=== PATIENT | female | born 1980 | race Caucasian/White ===

== ENCOUNTER 2019-07-04 18:16 | Emergency (ER) | payer OTHER, SELFPAY ==
[2019-07-04 18:26] VITALS: BP 117/79; PULSE 87; RESP 16; TEMP 37.4; O2SAT 100
--- NOTE | 2019-07-04 18:38 | ED.GENADULT ---
HPI - General Adult General Chief complaint: Wound/Laceration Stated complaint: KNOT ON R FINGER Time Seen by Provider: 07/04/19 18:38 Source: patient Mode of arrival: ambulatory Limitations: no limitations History of Present Illness HPI narrative: 39-year-old female patient presents to the [facility] with complaints of a knot to the right index finger. Patient states she has noticed it for about the last 3 weeks however the last couple of days is gotten increasingly painful. Patient states that she was trying to open up a jar with that hand when the pain started. Patient states the pain only is painful when she puts pressure to the finger. Patient states she has been taking some Tylenol and ibuprofen for the pain. Related Data Home Medications Medication Instructions Recorded Confirmed Vitamin 07/04/19 calcium carbonate-vitamin D3 tablet PO 07/04/19 [Calcium 600 with Vitamin D3] Allergies Allergy/AdvReac Type Severity Reaction Status Date / Time tramadol AdvReac Mild Nausea and Unverified 01/07/19 15:48 Vomiting Review of Systems Review of Systems: Narrative: CONSTITUTIONAL: Denies fever, chills, or sweats. EYES: Denies visual changes, redness, or discharge. ENT: Denies rhinorrhea, congestion, sore throat, or otalgia. CARDIOVASCULAR: Denies chest pain, palpitations, or edema. RESPIRATORY: Denies cough or dyspnea. GASTROINTESTINAL: Denies abdominal pain, nausea, vomiting, or diarrhea. GENITOURINARY: Denies dysuria or hematuria. SKIN: Denies rash or itching. MUSCULOSKELETAL: Denies back pain, joint pain, or myalgia. Positive right index finger pain NEUROLOGIC: Denies headache, numbness, or weakness. PSYCHIATRIC: Denies anxiety or depression. PMFSH Comments At the time of my signature I agree with nursing past medical history, surgical, social, and family history. There is no relevant family history pertinent to the presenting complaint. Exam Narrative: Exam Narrative: GENERAL: Well-appearing, well-nourished, and in no acute distress. HEAD: Normocephalic, atraumatic. EYES: PERRLA and EOMI. ENT: Nares clear, no rhinorrhea or epistaxis. Mucous membranes moist. NECK: Supple. No lymphadenopathy CHEST: Clear to auscultation. No respiratory distress. HEART: Regular rate and rhythm. No murmur heard. Normal peripheral pulses. ABDOMEN: Soft, nontender, nondistended, normal active bowel sounds. EXTREMITIES: Normal range of motion. No edema. Patient has a small and mobile cyst underneath the skin noted between the PIP and MIP joint on the palm side of the right index finger. Slightly tender with palpation. There is no redness, warmth, swelling or no obvious open wounds at this time. Patient has excellent range of motion to the hand and fingers. No numbness or tingling. 2+ radial pulses noted on palpation. SKIN: Warm, dry, no rash. NEURO: No focal deficits. Alert and oriented x3. Course Vital Signs Vital signs: Vital Signs Temperature 37.4 C 07/04/19 18:26 Pulse Rate 87 07/04/19 18:26 Respiratory Rate 16 07/04/19 18:26 Blood Pressure 117/79 07/04/19 18:26 Pulse Oximetry 100 07/04/19 18:26 Temperature 37.4 C 07/04/19 18:26 Pulse Rate 87 07/04/19 18:26 Respiratory Rate 16 07/04/19 18:26 Blood Pressure 117/79 07/04/19 18:26 Pulse Oximetry 100 07/04/19 18:26 Vital signs reviewed. Medical Decision Making Differential Diagnosis Differential Diagnosis: Differential diagnosis: Abscess, cellulitis, hidradenitis, laceration, puncture wound. Discussed with patient that this does feel like maybe a small little cyst underneath the skin. Discussed with patient that there is no signs of infection at this time. Discussed with patient that if her symptoms get worse and do show signs of infection including redness, swelling, increase in pain then she would need to be reassessed. Discussed with patient that I would continue taking Tylenol ibuprofen for pain. May also want to
== END 2019-07-04 18:49 | disposition home or self-care (01) ==
PROVIDERS: Emergency Provider Nurse Practitioner Family; PCP Family Medicine
DX: M79.644 Pain in right finger(s) (principal)
CPT/HCPCS: 99212; G0463

== ENCOUNTER 2021-11-09 15:00 | Outpatient (CLI) | payer OTHER, SELFPAY ==
--- NOTE | ~2021-11-09 | MM_ITS ---
EXAMINATION: MM screening chcia BI w mary HISTORY: Screening TECHNIQUE: Craniocaudal and mediolateral oblique 3-D tomosynthesis images were obtained and synthetic 2-D images were generated. CAD analysis was submitted and interpreted. COMPARISON: No prior mammogram is available for comparison at this institution. BREAST PARENCHYMAL COMPOSITION: There are scattered areas of fibroglandular density. FINDINGS: There is no evidence of suspicious mass, calcification, or architectural distortion to sugg est malignancy in either breast. There has been no suspicious interval change. IMPRESSION: 1. No mammographic evidence of malignancy. 2. Recommend routine screening mammography in one year. BI-RADS Category 1: Negative Reviewed, dictated and finalized at location A.
== END 2021-11-09 15:01 | disposition home or self-care (01) ==
LOC: ANHIMG 15:01
PROVIDERS: PCP Family Medicine; Visit Provider Nurse Practitioner Obstetrics & Gynecology
DX: Z12.31 Encounter for screening mammogram for malignant neoplasm of breast (principal)
CPT/HCPCS: 77063; 77067

== ENCOUNTER 2022-10-21 19:23 | Emergency (ER) | payer OTHER, SELFPAY ==
--- NOTE | 2022-10-21 19:29 | ED.EXTPRO ---
HPI - Extremity Problem General Chief complaint: Extremity Problem,Nontraumatic Stated complaint: Pain in heel of right foot Time Seen by Provider: 10/21/22 19:38 Source: patient, RN notes reviewed and old records reviewed Mode of arrival: ambulatory Limitations: no limitations History of Present Illness HPI Narrative: 42-year-old female presents to the [facility] with pain to her right posterior arch/heel area that has been going on for 3 months. States when she gets up in the morning and walks bare feet around the house the pain gets worse. Is wearing sneakers makes the feet better. Onset (ago): month(s) (3) Related Data Home Medications Medication Instructions Recorded Confirmed Vitamin 07/04/19 calcium carbonate 600 mg-vitamin tablet PO 07/04/19 D3 10 mcg (400 unit) chewable tablet (Calcium 600 with Vitamin D3) Allergies Allergy/AdvReac Type Severity Reaction Status Date / Time tramadol AdvReac Mild Nausea and Unverified 01/07/19 15:48 Vomiting Review of Systems Review of Systems: All systems reviewed & are unremarkable except as noted in HPI and below Constitutional: Constitutional: Reports no additional constitutional complaints Eyes: Eyes: Reports no additional eye complaints ENT: Reports system reviewed and no additional complaints, except as documented Cardiovascular: Cardiovascular: Reports no additional cardiovascular complaints, Denies chest pain and Denies dyspnea Respiratory: Respiratory: Reports no additional respiratory complaints, Denies chest congestion, Denies cough and Denies dyspnea Gastrointestinal: Gastrointestinal: Reports no additional gastrointestinal complaints, Denies abdominal pain, Denies nausea and Denies vomiting Musculoskeletal: Musculoskeletal: Reports as per HPI Integumentary/Breasts: Skin/Breast: Reports system reviewed and no additional complaints, except as docu Neurologic: Reports system reviewed and no additional complaints, except as documented Psychiatric: Psychiatric: Reports no additional psychiatric complaints Allergic/Immunologic: Allergic/Immunologic: Reports no additional allergic/immunologic complaints PMFSH Comments At the time of my signature, I reviewed and agree with the nursing past medical, surgical, social, and family history. There is no relevant family history pertinent to the patient complaint. Exam Const: General: cooperative, healthy appearing, comfortable, no acute distress, well developed, alert and well nourished Nutritional Appearance: well nourished Orientation/consciousness: patient oriented x3 Limitations: no limitations HENMT: Head: normal to inspection Ears: hearing grossly normal bilaterally and external ears normal Face/Nose/Sinus: Normal external nose present, Normal nares present, Normal nasal mucous membranes and turbinates present and normal facial exam Face and sinus: normal facial exam Throat: posterior oropharynx normal and uvula midline Eyes: General: appearance normal, both eyes and all related structures Alignment and Position: alignment normal Periorbital: periorbital findings normal Pupils: Equal, round and reactive pupils present EOM: EOMs intact bilaterally Neck: Neck: normal visual inspection, full ROM, no lymphadenopathy and no meningeal signs Chest: Chest palpation & inspection: normal inspection of the chest Resp: Effort & Inspection: normal respiratory effort and able to speak in complete sentences Auscultation: clear to auscultation bilaterally, no crackles, no rales, no rhonchi and no wheezes Cardio: Rate: regular rate Rhythm: regular rhythm Back/Spine/Pelvis: Cervical Spine: cervical ROM normal Thoracic/Lumbar Spine: No thoracic spinal tenderness Skin: General skin exam: normal color and no rashes or lesions noted Lesions: no lesions Rashes: no rashes Wounds: no wounds Neuro: General: patient oriented x3, gait normal, tone normal, moves all extremities and no meningeal s
[2022-10-21 19:32] VITALS: BP 121/96; PULSE 86; RESP 16; TEMP 36.5; O2SAT 100
== END 2022-10-21 19:51 | disposition home or self-care (01) ==
PROVIDERS: Emergency Provider Nurse Practitioner; PCP Family Medicine
DX: M72.2 Plantar fascial fibromatosis (principal)
CPT/HCPCS: 99212; G0463

== ENCOUNTER 2023-04-05 10:08 | Outpatient (CLI) | payer OTHER, SELFPAY ==
--- NOTE | ~2023-04-05 | MM_ITS ---
EXAMINATION: MM screening chica BI w mary HISTORY: Screening TECHNIQUE: Craniocaudal and mediolateral oblique 3-D tomosynthesis images were obtained and synthetic 2-D images were generated. CAD analysis was submitted and interpreted. COMPARISON: 11/09/2021 BREAST PARENCHYMAL COMPOSITION: There are scattered areas of fibroglandular density. FINDINGS: There is no evidence of suspicious mass, calcification, or architectural distortion to sugg est malignancy in either breast. There has been no suspicious interval change. IMPRESSION: 1. No mammographic evidence of malignancy. 2. Recommend routine screening mammography in one year. BI-RADS Category 1: Negative Reviewed, dictated and finalized at location A. GER [facility]
== END 2023-04-05 10:09 | disposition home or self-care (01) ==
PROVIDERS: PCP Family Medicine; Visit Provider Nurse Practitioner Obstetrics & Gynecology
DX: Z12.31 Encounter for screening mammogram for malignant neoplasm of breast (principal)
CPT/HCPCS: 77063; 77067

== ENCOUNTER 2023-04-13 15:42 | Emergency (ER) | payer OTHER, SELFPAY ==
--- NOTE | 2023-04-13 15:51 | ED.EYEPROB ---
HPI - Eye Problem General Chief complaint: Eye Problems Stated complaint: EYE REDNESS Time Seen by Provider: 04/13/23 15:51 Source: patient Mode of arrival: ambulatory Limitations: no limitations History of Present Illness HPI Narrative: 42-year-old female presents with complaint of redness to bilateral eyes. Started to left eye 1st now spreading to right eye. Complaining itching. Reports that her son and father both had bacterial conjunctivitis over the last week. Live in the same house. No vision changes. Patient does not were contacts. All systems reviewed and negative except as noted above. Related Data Home Medications Medication Instructions Recorded Confirmed Vitamin 07/04/19 calcium carbonate 600 mg-vitamin tablet PO 07/04/19 D3 10 mcg (400 unit) chewable tablet (Calcium 600 with Vitamin D3) Allergies Allergy/AdvReac Type Severity Reaction Status Date / Time tramadol AdvReac Mild Nausea and Unverified 01/07/19 15:48 Vomiting Review of Systems Review of Systems: CONSTITUTIONAL: Denies fever, chills, or sweats. EYES: Denies visual changes reports bilateral eye redness, itching and discharge. ENT: Denies rhinorrhea, congestion, sore throat, or otalgia. CARDIOVASCULAR: Denies chest pain, palpitations, or edema. RESPIRATORY: Denies cough or dyspnea. GASTROINTESTINAL: Denies abdominal pain, nausea, vomiting, or diarrhea. GENITOURINARY: Denies dysuria or hematuria. SKIN: Denies rash or itching. MUSCULOSKELETAL: Denies back pain, joint pain, or myalgia. NEUROLOGIC: Denies headache, numbness, or weakness. PSYCHIATRIC: Denies anxiety or depression. All other systems reviewed are negative, except as documented in HPI. PMFSH Comments At time of signature, agree with nursing past medical, surgical, social and family history. There is no relevant family history pertinent to the presenting complaint. Exam Narrative: GENERAL: This is a well-nourished, well-developed patient, in no apparent distress. HEAD: normocephalic, atraumatic. EYES: PERRL. Sclera and conjunctiva erythematous bilateral. Yellow drainage noted to left eye. Vision is grossly intact. EARS: External ears normal NOSE: External nose normal NECK: Neck supple, non-tender without lymphadenopathy, masses or thyromegaly. CARDIOVASCULAR: Regular rate and rhythm without murmurs, gallops, or rubs. RESPIRATORY: Clear to auscultation. Breath sounds equal bilaterally. No wheezes, rales, or rhonchi. SKIN: warm, Dry, intact with no suspicious lesions or rash, good texture and turgor. NEURO: awake, alert, and oriented to person, place and time. There were no obvious focal neurologic abnormalities. EXTREMITIES: No joint tenderness, effusion, or edema noted. Course Course Level of Care: Express Care Visit Vital Signs Vital signs: Vital Signs Temperature 36.9 C 04/13/23 15:52 Pulse Rate 89 04/13/23 15:52 Respiratory Rate 16 04/13/23 15:52 Blood Pressure 115/83 04/13/23 15:52 Pulse Oximetry 100 04/13/23 15:52 Temperature 36.9 C 04/13/23 15:52 Pulse Rate 89 04/13/23 15:52 Respiratory Rate 16 04/13/23 15:52 Blood Pressure 115/83 04/13/23 15:52 Pulse Oximetry 100 04/13/23 15:52 Reviewed MDM - Eye Problem MDM Narrative Medical decision making narrative: Patient is aware of diagnosis, understands and agrees to treatment plan. Anticipatory guidance given. Patient agrees to follow-up as directed and is aware of reasons to seek care at the emergency department. Portions of this record may have been created with voice recognition software Differential Diagnosis Differential diagnosis: Likely conjunctivitis Discharge Plan Discharge Clinical Impression: Acute bacterial conjunctivitis of both eyes Patient Disposition: Home, Self-Care Condition: Stable Instructions: Antibiotic Form, Conjunctivitis (ED) Additional Instructions: Use antibiotic drops as prescribed.
[2023-04-13 15:52] VITALS: BP 115/83; PULSE 89; RESP 16; TEMP 36.9; O2SAT 100
== END 2023-04-13 16:03 | disposition home or self-care (01) ==
PROVIDERS: Emergency Provider Nurse Practitioner Family; PCP Nurse Practitioner Adult Health
DX: H10.33 Unspecified acute conjunctivitis, bilateral (principal)
CPT/HCPCS: 99213; G0463

== ENCOUNTER 2023-07-15 10:43 | Emergency (ER) | payer OTHER, SELFPAY ==
[2023-07-15 10:57] VITALS: BP 111/77; PULSE 72; RESP 16; TEMP 36.2; O2SAT 100
--- NOTE | 2023-07-15 11:03 | ED.URI ---
HPI - URI/Sore Throat General Chief Complaint: Upper Respiratory Infection Stated Complaint: Sinus Infection Symptoms Time Seen by Provider: 07/15/23 11:09 Source: patient and RN notes reviewed Mode of arrival: ambulatory Limitations: no limitations History of Present Illness HPI Narrative: 43-year-old female presents concern for 2 week history of sinus pain, head congestion, sinus headache. She reports chronic sinus congestion likely from allergies. She takes Claritin and has been taking multi symptom cold medicine. MD elicited complaint: nasal congestion and sinus pain Related Data Home Medications Medication Instructions Recorded Confirmed Vitamin 1 cap PO DAILY 07/04/19 07/15/23 calcium carbonate 600 mg-vitamin 1 tablet PO DAILY 07/04/19 07/15/23 D3 10 mcg (400 unit) chewable tablet (Calcium 600 with Vitamin D3) Allergies Allergy/AdvReac Type Severity Reaction Status Date / Time tramadol AdvReac Mild Nausea and Unverified 07/15/23 10:50 Vomiting Review of Systems Review of Systems: CONSTITUTIONAL: Denies malaise, chills, sweats, or fever. EYES: Denies visual changes, redness, or discharge. ENT: Reports rhinorrhea, congestion, sinus pain CARDIOVASCULAR: Denies chest pain, palpitations, or edema. RESPIRATORY: Denies cough. Denies dyspnea. GASTROINTESTINAL: Denies abdominal pain, nausea, vomiting, diarrhea SKIN: Denies rash or itching. MUSCULOSKELETAL: Denies myalgia. NEUROLOGIC: Denies headache. All systems reviewed & are unremarkable except as noted in HPI and below PMFSH Comments At time of signature, agree with nursing past medical, surgical, social and family history. There is no relevant family history pertinent to the presenting complaint Exam Narrative: GENERAL: Well-appearing, well-nourished, and in no acute distress. HEAD: Normocephalic EYES: PERRLA, conjunctivae clear ENT: Nares clear, turbinates edematous and erythematous. Mucous membranes moist. TM pearly bey with sharp light reflex bilaterally; no tragal tenderness. Oropharynx not erythematous without lesions. Tonsils not enlarged and without exudate, no drooling, no hoarseness, no trismus, uvula midline. NECK: Supple. No lymphadenopathy CHEST: Clear to auscultation, breath sounds equal. No wheezing, rhonchi, rales, or stridor. No respiratory distress, speaks in full sentences. HEART: Regular rate and rhythm. No murmur heard. SKIN: Warm, dry, no rash. NEURO: Alert and oriented x3. PSYCH: Normal mood and affect Course Course Emergency Course: Patient is aware of diagnosis, understands and agrees to treatment plan. Anticipatory guidance given. Patient agrees to follow-up as directed and is aware of reasons to seek care at the emergency department. Portions of this record may have been created with voice recognition software Level of Care: Express Care Visit Vital Signs Vital signs: Vital Signs Temperature 97.2 F L 07/15/23 10:57 Pulse Rate 72 07/15/23 10:57 Respiratory Rate 16 07/15/23 10:57 Blood Pressure 111/77 07/15/23 10:57 Pulse Oximetry 100 07/15/23 10:57 Temperature 97.2 F L 07/15/23 10:57 Pulse Rate 72 07/15/23 10:57 Respiratory Rate 16 07/15/23 10:57 Blood Pressure 111/77 07/15/23 10:57 Pulse Oximetry 100 07/15/23 10:57 Reviewed. MDM - URI/Sore Throat MDM Narrative Medical decision making narrative: Differential diagnosis considered: Curran virus, strep pharyngitis, allergic rhinitis, upper respiratory tract infection, sinusitis, rhinosinusitis, nasopharyngitis. viral pharyngitis, otitis media, otitis externa, pneumonia, bronchitis, viral cough syndrome, viral syndrome, and influenza. Exam findings show no acute concerns or changes; patient is non-toxic appearing and is in no distress. Patient is appropriate for outpatient treatment and follow-up. Lab Data Attestation: I reviewed the patient's lab results. Critical Care Time Critical Care Time Critic
[2023-07-15 11:07] VITALS: BP 111/77; PULSE 72; RESP 16; TEMP 36.2; O2SAT 100
== END 2023-07-15 11:26 | disposition home or self-care (01) ==
PROVIDERS: Emergency Provider Nurse Practitioner; PCP Nurse Practitioner Adult Health
DX: J01.90 Acute sinusitis, unspecified (principal)
CPT/HCPCS: 99213; G0463

== ENCOUNTER 2023-12-01 16:43 | Emergency (ER) | payer OTHER, SELFPAY ==
--- NOTE | ~2023-12-01 | XR_ITS ---
XR wrist LT min 3V Ordering provider: Sophie Rodriguez NP History: . fall, pain in wrist . Comparison: None. FINDINGS: BONES: Normal. JOINT SPACES: Well maintained. SOFT TISSUES: Normal. IMPRESSION: No acute osseous abnormality left wrist. Reviewed, dictated and finalized at location A.
[2023-12-01 17:26] VITALS: BP 128/82; PULSE 94; RESP 16; TEMP 36.4; O2SAT 99
--- NOTE | 2023-12-01 17:56 | ED.UPPEXIN ---
HPI - Extremity Injury (Upper) General Chief Complaint: Extremity Injury, Upper Stated Complaint: Injured Wrist Left Time Seen by Provider: 12/01/23 17:40 Source: patient, family, RN notes reviewed and old records reviewed Mode of arrival: ambulatory Limitations: no limitations History of Present Illness HPI narrative: 43-year-old female who presents to [facility] of injury to her left wrist which occurred when she fell roller-skating with her daughter. Patient reports that she tried to brace her fall and put her hands back and she injured the left wrist. Patient also reports that she twisted her back when she fell with no voiced acute concern at this time reports no pain to legs. MD complaint: injury to: left and wrist Onset (ago): hour(s) (today prior to arrival) Severity scale (1-10): 7 Treatments prior to arrival: other (none) Related Data Home Medications Medication Instructions Recorded Confirmed Vitamin 1 cap PO DAILY 07/04/19 12/01/23 calcium carbonate 600 mg-vitamin 1 tablet PO DAILY 07/04/19 12/01/23 D3 10 mcg (400 unit) chewable tablet (Calcium 600 with Vitamin D3) drospirenone (contraceptive) 4 mg 1 tablet PO DAILY 12/01/23 12/01/23 (28) tablet (Slynd) Allergies Allergy/AdvReac Type Severity Reaction Status Date / Time tramadol AdvReac Mild Nausea and Verified 12/01/23 17:24 Vomiting Review of Systems Review of Systems: CONSTITUTIONAL: Denies fever, chills, or sweats. EYES: Denies visual changes, redness, or discharge. ENT: Denies rhinorrhea, congestion, sore throat, or otalgia. CARDIOVASCULAR: Denies chest pain, palpitations, or edema. RESPIRATORY: Denies cough or dyspnea. GASTROINTESTINAL: Denies abdominal pain, nausea, vomiting, or diarrhea. GENITOURINARY: Denies dysuria or hematuria. SKIN: Denies rash or itching. MUSCULOSKELETAL: Denies acute back pain,pain to left anterior wrist , or myalgia. NEUROLOGIC: Denies headache, numbness, or weakness. PSYCHIATRIC: Denies anxiety or depression. All systems reviewed & are unremarkable except as noted in HPI and below PMFSH Past Medical History Medical History (Updated 12/02/23 @ 09:15 by Sophie Rodriguez NP) UTI (urinary tract infection) Surgical History Surgical History (Updated 12/02/23 @ 09:16 by Sophie Rodriguez NP) [place] teeth extracted Social History Social History (Updated 12/02/23 @ 09:16 by Sophie Rodriguez NP) Smoking status: Never smoker Alcohol intake: current Alcohol use details: social Substance use type: does not use Living arrangements: with family Gender identity (if verbalized by the patient): Female Comments At time of signature, agree with nursing past medical, surgical, social and family history. There is no relevant family history pertinent to the presenting complaint Exam Narrative: GENERAL: Well-appearing, well-nourished, and in no acute distress. HEAD: Normocephalic, atraumatic. EYES: PERRLA and EOMI. ENT: Nares clear, no rhinorrhea or epistaxis. Mucous membranes moist. NECK: Supple. no lymphadenopathy CHEST: Clear to auscultation. No respiratory distress.SAO2 99% on room air HEART: Regular rate and rhythm. No murmur heard. Normal peripheral pulses. ABDOMEN: Soft, nontender, nondistended, normal active bowel sounds. EXTREMITIES: Normal range of motion. No edema.Pain to left anterior wrist occurring after fall, strong left radial pulse, is able to move wrist but painful, denies any tingling or numbness to hand or fingers, brisk capillary refill SKIN: Warm, dry, no rash. NEURO: No focal deficits. Alert and oriented x3. Course Course Emergency Course: Patient is aware of diagnosis, understands and agrees to treatment plan.? Anticipatory guidance given.? Patient agrees to follow-up as directed and is aware of reasons to seek care at the emergency department. Portions of this record may have been created with voice recognition software Level of Care: [facility]
== END 2023-12-01 18:10 | disposition home or self-care (01) ==
PROVIDERS: Emergency Provider Registered Nurse; PCP Family Medicine
DX: S63.502A Unspecified sprain of left wrist, initial encounter (principal); S66.912A Strain of unspecified muscle, fascia and tendon at wrist and hand level, left hand, initial encounter; V00.121A Fall from non-in-line roller-skates, initial encounter; Y93.51 Activity, roller skating (inline) and skateboarding
CPT/HCPCS: 73110; 99213; G0463

== ENCOUNTER 2024-04-06 09:47 | Outpatient (CLI) | payer OTHER, SELFPAY ==
--- NOTE | ~2024-04-06 | MM_ITS ---
EXAMINATION: MM screening chica BI w mary HISTORY: Screening TECHNIQUE: Craniocaudal and mediolateral oblique 3-D tomosynthesis images were obtained and synthetic 2-D images were generated. CAD analysis was submitted and interpreted. COMPARISON: Comparison to multiple prior studies sequentially, with oldest reviewed study dated 11/09. BREAST PARENCHYMAL COMPOSITION: Not dense: There are scattered areas of fibroglandular density. FINDINGS: There are developing asymmetries in the upper outer quadrant of both breasts, middle-fur mixer operator ior depth. There are no suspicious calcifications. IMPRESSION: 1. Developing bilateral breast asymmetries. 2. Additional mammographic views and possible breast ultrasound are recommended. BI-RADS Category 0: Incomplete: Needs additional imaging evaluation. Reviewed, dictated and finalized at location B. TH SCREENER IMPRESSION: 1. Developing bilateral breast asymmetries. 2. Additional mammographic views and possible breast ultrasound are recommended . BI-RADS Category 0: Incomplete: Needs additional imaging evaluation.
== END 2024-04-06 09:48 | disposition home or self-care (01) ==
LOC: ANHIMG 09:51
PROVIDERS: PCP Family Medicine; Visit Provider Nurse Practitioner Obstetrics & Gynecology
DX: Z12.31 Encounter for screening mammogram for malignant neoplasm of breast (principal); R92.8 Other abnormal and inconclusive findings on diagnostic imaging of breast
CPT/HCPCS: 77063; 77067

== ENCOUNTER 2024-05-01 10:42 | Outpatient (CLI) | payer OTHER, SELFPAY ==
--- NOTE | ~2024-05-01 | MMUS_ITS ---
EXAMINATION: MM diagnostic chica BI w mary, US breast BI limited HISTORY: Follow-up breast asymmetries TECHNIQUE: Additional 3-D tomosynthesis images of the breasts were performed and synthetic 2-D images were generated. CAD analysis was submitted and interpreted. High resolution limited bilateral breast ultrasound was performed. COMPARISON: Comparison to multiple prior studies sequentially, with oldest reviewed study dated 11/09. BREAST PARENCHYMAL COMPOSITION: Not dense: There are scattered areas of fibroglandular density. FINDINGS: MAMMOGRAPHIC FINDINGS: Asymmetries in the lateral aspect of both breast compress with spot views, likely superimposed fibrog landular tissue. No discrete mass or architectural distortion. There are no suspicious calcifications . ULTRASOUND: Limited bilateral breast ultrasound: Normal heterogeneous echotexture without focal solid or cystic m ass. IMPRESSION: 1. No evidence for malignancy in either breast. 2. Routine yearly screening mammogram and regular clinical breast examination are recommended. BI-RADS Category 2: Benign finding(s). Reviewed, dictated and finalized at location B. GATION ASSISTANT IMPRESSION: 1. No evidence for malignancy in either breast. 2. Routine yearly screening mammogram and regular clinical breast examination a re recommended. BI-RADS Category 2: Benign finding(s).
--- OUTSIDE RECORDS SUMMARY | 2024-05-08 06:29 | XMS_ITS | Referral Summary ---
Author Organization [facility] [employer] Address [address] [place] [address] Care Team Providers Care Consolidation Accountant Name Role Phone Unavailable Primary Care Provider Unavailabl e Source Comments [facility],non-owned Affiliates and Associated Physician Practices is amultiple site organization consisting of ambulatory clinics and hospital sitesin [place], [place], [place] and [place]. This disclosure is being madepursuant to the Care Everywhere program and may not contain all information available regarding this patient. Last updated 18.[facility] [employer] Allergies No known active allergies Medications * Be aware that medications may not be up to date on this document. Alwaysverify current medications with the patient. Medication Sig Dispensed Refills Start Date End Date Status Slynd 4 MG TABS tablet Take 1 (one) tablet by mouth once daily 09/24/2022 Active Social History Tobacco Use Types Packs/Day Years Used Date Smoking Tobacco: Never Smokeless Tobacco: Never Tobacco Cessation:Counseling Given: Not Answered Alcohol Use Standard Drinks/Week Comments Yes 0 (1 standard drink = 0.6 oz pur e alcohol) 3 per month Sex and Gender Information Value Date Recorded Sex Assigned at Not on file Gender Identity Not on file Sexual Orientation Not on file Last Filed Vital Signs Vital Sign Reading Time Taken Comments Blood Pressure 122/88 10/28/2022 2:32 PM CDT Pulse 56 10/28/2022 2:32 PM CDT Temperature 35.7 ??C (96.3 ??F) 10/28/2022 2:32 PM CD T Respiratory Rate - - Oxygen Saturation 94% 10/28/2022 2:32 PM CDT Inhaled Oxygen Concentration - - Weight 76.2 kg (168 lb) 10/28/2022 2:32 PM CDT Height 165.1 cm (5' 5 ) 10/28/2022 2:32 PM CDT Body Mass Index 27.96 10/28/2022 2:32 PM CDT Plan of Treatment Not on file
--- OUTSIDE RECORDS SUMMARY | 2024-05-08 06:29 | XMS_ITS | Patient Health Summary ---
Author Organization [facility] Address [address] [place] [address] Care Team Providers Care C.O.D. Clerk Name Role Phone Unavailable Primary Care Provider Unavailabl e Note from [facility],non-owned Affiliates and Associated Physician Practices is amultiple site organization consisting of ambulatory clinics and hospital sitesin [place], [place], [place] and [place]. This disclosure is being madepursuant to the Care Everywhere program and may not contain all information available regarding this patient. Last updated 18.[facility] [employer] Allergies No known active allergies Medications * Be aware that medications may not be up to date on this document. Alwaysverify current medications with the patient. * Slynd 4 MG TABS tablet(Started 09/24/2022) Take 1 (one) tablet by mouth once daily Social History Tobacco Use Types Packs/Day Years [...] Mass Index 27.96 10/28/2022 2:32 PM CDT Procedures * SONOGRAM - COMPLETE(Performed 02/12/2014) Performed for Choroid plexus cyst of fetus on ultrasound Results * SONOGRAM - COMPLETE (02/12/2014 8:53 AM CDT) Anatomical Region Laterality Modality Other 02/12/2014 8:53 AM CDT Narrative 02/22/2014 4:09 PM CDT ?[facility] ? [facility] [place] ?PHONE: ??FAX: ? Pat. Name: ?GAVIOTA GUAJARDO. No: ?[id number] Study Date: ?? 02/12/2014 ??8:53am , Age: ? 1980, 33 LMP: ?08/28/2013 GA by LMP: ?24w0d GA by US: ? 23w5d GA Selected: ??24w0d (LMP) KASHIF: ?06/04/2014 Referring MD: ERIN SERRANO MD Tractor Trailer Truck Driver: ??Stacy Palacios RDMS CPT4: ? 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 GROWTH EVALUATION Measurement ??GA ? Range ? Srce %for GA Ratios ----- ---- ------- BPD ??5.7 cm 23w4d (65l1n-91g6u) Hadl BPD 39% FL/BPD 0.75 (0.71 - 0.87) HC ??21.9 cm 23w6d (70c7b-84c3z) Hadl HC ??47% FL/AC ??0.22 (0.20 - 0.24) AC ??19.2 cm 24w0d (05k5w-32t6i) Hadl AC ??49% HC/AC ??1.14 (1.02 - 1.21) FL ?? 4.3 cm 24w1d (44j4m-10f8f) Hadl FL ??53% CI ? 0.75 (0.70 - 0.86) HL ?? 3.8 cm 23w1d (35l1e-22i9d) J Luis HL ??37% GA for sonogram 23w5d ([id number]) ?? Weight Estimate: based on (HL,BPD,HC,AC,FL) Avg ? Weight: 650 gm (555-745) Hadlock ? : 1lbs, 6oz ? Normal: 671 gm (503-838) Hadlock ? Wt% ? 44% for 24w0d Heart Rate: 143 bpm CLINICAL SUMMARY Study Number: ??1 A kang fetus is identified in breech presentation. ??The measurements today are consistent with appropriate growth compared to previous examination. ??The KASHIF selected is based on her LMP and a prior ultrasound examination. ??The amniotic fluid volume is within normal limits. ??The placenta is anterior. ??No major malformations are seen. ??The patient was advised that ultrasound does not allow detection of all structural or chromosomal abnormalities. ?? We discussed choroid plexus cysts as soft markers of trisomy 18. Her risk of trisomy 18 on Sequential Screen was less than 1:10,000 and her adjusted risk in about 1:1000 accounting for today's ultrasound. She is not interested in further testing. IMPRESSION: ?? 1. Single, live, IUP 24w0d 2. Appropriate size and growth for the established KASHIF 3. Normal amniotic fluid volume 4. Previously seen choroid plexus cysts were not demonstrated on today's examination 5. No structural malformations nor sonographic markers of aneuploidy were seen on today's examination RECOMMEND: ?? Follow up ultrasound as clinically indicated Thank you for allowing us the opportunity to care for your patient. Clement Bee MD <Electronic Signature> ??02/12/2014 10:23am Erin Serrano MD [facility] ORDERABLES
--- OUTSIDE RECORDS SUMMARY | 2024-05-08 06:29 | XMS_ITS | Clinical Summary ---
Author Organization [facility] [employer] Address [address] [place] [address] Care Team Providers Care Key Bed Installer Name Role Phone Unavailable Primary Care Provider Unavailabl e Source Comments [facility],non-owned Affiliates and Associated Physician Practices is amultiple site organization consisting of ambulatory clinics and hospital sitesin [place], [place], [place] and [place]. This disclosure is being madepursuant to the Care Everywhere program and may not contain all information available regarding this patient. Last updated 18.[facility] [employer] Allergies No known active allergies Medications * [...] 10/28/2022 2:32 PM CDT Plan of Treatment Health Maintenance Due Date Last Done Comments LIPID TESTING 1980 MAMMOGRAM 1980 HIV SCREENING 1996 HEPATITIS C SCREENING 06/08/1999 DTAP/TDAP/TD VACCINES (1 - Tdap) 2000 HEPATITIS B VACCINE (1 of 3 - 19+ 3-dose series) 2000 SCREENING FOR DIABETES 10/28/2022 COVID-19 VACCINE (1 - 2023-2 5 season) 2023 INFLUENZA VACCINE (#1) 2023 DEPRESSION SCREENING 04/25/2024 PAP SMEAR 09/09/2024 09/09/2021 ZOSTER VACCINE (1 of 2) 2031 HIB VACCINE Aged Out No longer eligi ble based on patient's age to complete this topic HPV VACCINE Aged Out No longer eligi ble based on patient's age to complete this topic MENINGOCOCCAL (Group B) VACCINE Aged Out No longer eligible based on patient's age to complete this topic MENINGOCOCCAL VACCINE Aged Out No franck kimmie eligible based on patient's age to complete this topic PNEUMOCOCCAL VACCINE Aged Out No long er eligible based on patient's age to complete this topic
--- OUTSIDE RECORDS SUMMARY | 2024-05-08 06:30 | XMS_ITS | Data Portability ---
Author Organization [facility] [place] Address [address] [address] [place] [address] Care Team Providers Care Batteryman Name Role Phone FRANTZNIMESH LISALUKASZESTUARDO Primary Care Provider Assessment Encounter Date Assessment Date Assessment LastModified by Organization Details LastModified Time 05/06/2020 05/06/2020 Annual gynecological exam performed. Patient will come back in a year unless there are new symptoms. Not available 05/06/2020 14:37:55 09/09/2021 09/09/2021 Annual gynecological exam performed. Patient will come back in a year unless there are new symptoms. Not available 09/09/2021 11:52:52 12/15/2022 12/15/2022 Annual gynecological exam performed. Patient will come back in a year unless there are new symptoms. [email or web address] Not available 12/15/2022 11:29:49 Plan of Treatment Reminders Order Date Submit Date Provider Last Modified By Organization Details Last Modified Time Details Appointments None recorded. Lab test, urine 2022 023 [email or web address] [facility], [address], [place], [address], 11:59:07 Referral None recorded. Procedures None recorded. Surgeries None recorded. Imaging MAMMO, screening, bilateral 2022 023 [email or web address] [facility], [address], [place], [address], 08/30/202 3 12:19:23 Medication Orders Slynd 4 mg (28) tablet 2020 021 [facility] [address] [place], [address], 1 16:35:12 Slynd 4 mg (28) tablet 2021 022 [facility] [address] [place], [address], 2 12:09:40 Slynd 4 mg (28) tablet 2022 023 [facility] [address] [place], [address], 3 12:01:31 Slynd 4 mg (28) tablet 2023 024 [email or web address] 6 [facility] [address] [place], [address], 4 11:11:37 Patient TargetsNo targets recorded. Patient InstructionsNo instructions recorded. Reason for Referral None Reported. Results Created Date Observation Date Name Description Value Unit Range Abnormal Flag Note LastModifiedBy Organization Detail LastModifiedTime 05/06/19 21 05/08/2020 pap, LB Pap test thin prep Negati ve for Intrae pithel ial Lesion or Malign elvis normal ACCES MIKE #: [id number] Sourc e: Cervi hunter/E ndoce rvica l LMP: 09/11 Date Taken : 05/06 Speci men Type: ThinP rep Vial Date Repor carlos enrique: 2020 Clini hunter Data: Cytot ech: SLOAN Pradhan (ASCP ) Date Repor carlos enrique: 2020 Speci men Adequ acy: Satis facto ry for evalu ation Endoc ervic al/tr ansfo rmati on zone compo nent prese nt Gener al Categ oriza tion: NEGAT SHAR FOR INTRA EPITH ELIAL LESIO N OR MALIG SYED This speci men has been efrain zed by the ThinP rep Imagi ng Dariusz m, an inter activ e compu ter syste m which teddy ts the lab in the seth joyce of ThinP rep Pap Test slide jayesh olea imagi ng, the slide was revie wed by a Cytot izabellano logis t and/o r Patho logis t. D N A A S S A Y S R E P O R T TEST NAME RESUL NILS ----- ---- ----- -- HPV High Risk Seth gutierrez (TMA) ThinP rep Vial The human papil lomav irus (HPV) High Risk Screed n is an FDA-a pprov ed in-vi tro ampli fied nucle ic acid test for the quali tativ e detec tion of E6/E7 viral mRNA. Resul nils choi d be corre lated with patie nt prese ntati on, histo ry, cervi hunter cytol ogy and other clini hunter and labor atory findi ngs. See https ://[employer]/s ites/ defau lt/fi les/2 018-0 3AW- 57135 _002_ 01.pd f for anna marie gutierrez. Test perfo rmed by [facility] d/b/a [facility], [address] [facility], [place] [address] , Jo Vidales ra, DO, Labor atory [facility]. HPV High Risk *HPV NOT DETEC CARLOS ENRIQUE (TYPE S 16, 18, 31, 33, 35, 39, 45, 51, 52, 56, 58, 59, 66, 68) *HPV: The human papil lomav irus (HPV) High Risk Seth gutierrez is an FDA-a pprov ed in-vi tro ampli fied nucle ic acid test for the quali tativ e detec tion of E6/E7 viral mRNA. Resul nils choi d be corre lated with patie nt prese ntati on, histo ry, cervi hunter cytol ogy and other clini hunter and labor atory findi ngs. See https ://[employer]/s ites/ defau lt/fi les/2 018-0 3- 43207 _002_ 01.pd f for furth er infor elias n. Test perfo rmed by [facility], d/b/a [email or web address], [address], [place] [address] , Jo Vidales ra, DO, Labor atory [facility]. End of Repor t Techn ical servi cyrus provi ded by [email or web address], [address] [place] [address] Ranjit Morales MD, [facility]. Case revie wed and diagn osis rende red at [facility], d/b/a [email or web address], [address] [place] [address] Ranjit Morales MD, [facility]. CONFI DENTI AL Not Available [facility] ([facility]) [address] [place] [address], [place], [address], 05/08/2020 12:14:47 05/06/19 21 05/07/2020 HPV DNA, high- risk HPV high risk NOT DETECT ED normal Not Available [facility] ([facility]) [address] [place] [address], [place], [address], 05/08/2020 12:14:48 09/10/19 22 09/09/2021 IMAGE GUIDE D PAP AND HPV REGAR DLESS image guided Pap, HPV regardless of Pap result SEE RESULT S BELOW CASE REPOR T: Cytol ogy Gynec ologi hunter Repor t Case: [id number] Autho brooke haney Provi heather: Josh Hall Colle cted: 09/09 1448 ENGINEER STATION MAINLINE Order ing Locat ion: [place] [facility] Recei ashley: 09/10 0222 First Scree n: Larisa Villaseñor ret, CT Rescr een: Juliana Ortega , CT Speci men: Scree isiah Pap - Image d, Cervi x STATE MENT OF ADEQU ACY: Satis facto ry for evalu ation Trans forma tion zone compo nent prese nt FINAL DIAGN OSIS: Negat shar for Intra epith elial Lesio n or Onesimo oneill (NIL) . Elect julio cesar morales ezio d by Juliana Ortega , CT on 2021 at 6:50 PM ----- ----- ----- ----- ----- ----- ----- ----- ----- ----- ----- ----- ----- ----- ----- ----- ----- ---- HPV RESUL TS: HPV mRNA E6/E7 : No HPV mRNA Detec carlos enrique NOTE: This high risk HPV mRNA assay detec ts fourt een high- risk HPV types (16, 18, 31, 33, 35, 39, 45, 51, 52, 56, 58, 59, 66, 68) witho ut diffe renti ation . COMME NT: Note: This speci men was revie wed by a Cytot echno logis t and/o r Patho logis t (as indic ated in this repor t) after evalu ation using the Thinp rep Imagi ng Syste m. CLINI HUNTER INFOR MATIO N: Menst rual Statu s: LMP (if appli cable ): Clini hunter Histo ry/Pr eviou s Pap: Type of Neopl roxanne (if appli cable ): Signi fican t Clini hunter Findi ngs: Other Histo ry: Hormo deedee (if appli cable ): PAP EDUCA YAIR L NOTE: The Pap Test is a scree isiah test with an inher ent false negat shar rate. Liqui d-bas ed sampl ing may decre ase, but will not elimi jericho, false negat shar resul ts. A negat shar resul t does not precl ude the prese nce and/o r devel opmen t of disea se, since the prese nce of abnor mal cells in the sampl e depen ds on the locat ion of the lesio n and sampl ing techn ique. Prudence nued regul ar scree isiah is the best metho d of cance r preve ntion . If repor carlos enrique cytol ogic findi ng do not corre late with physi hunter and/o r histo rical findi ngs, furth er inves tigat ion is recom bria d, as clini matthew díaz nted. Not Available [facility] (Lab) [address], [place], [address], 09/15/2021 19:52:48 12/16/1912/15/2022 IMAGE GUIDE D PAP AND HPV REGAR DLESS image guided Pap, HPV regardless of Pap result SEE RESULT S BELOW CASE REPOR T: Cytol ogy Gynec ologi hunter Repor t Case: [id number] Autho brooke medina Provi heather: Josh Hall Colle cted: 12/15 1500 ENGINEER STATION MAINLINE Order ing Locat ion: [place] [facility] Recei ashley: 12/16 0705 First Scree n: Melody Lino, CT Speci men: Screed joyce Pap - Image d, Cervi x STATE MENT OF ADEQU ACY: Satis facto ry for evalu ation Trans forma tion zone compo nent prese nt FINAL DIAGN OSIS: Negat shar for Intra epith elial Lesio n or Onesimo oneill (NIL) . Ileana morales ezio d by Melody Lino, CT on 2022 at 3:16 PM ----- ----- ----- ----- ----- ----- ----- ----- ----- ----- ----- ----- ----- ----- ----- ----- ----- ---- HPV RESUL TS: HPV mRNA E6/E7 : No HPV mRNA Detec carlos enrique NOTE: This high risk HPV mRNA assay detec ts fourt een high- risk HPV types (16, 18, 31, 33, 35, 39, 45, 51, 52, 56, 58, 59, 66, 68) witho ut diffe renti ation . COMME NT: This speci men was revie wed by a Cytot echno logis t and/o r Patho logis t (as indic ated in this repor t) after evalu ation using the Thinp rep Imagi ng Syste m. CLINI HUNTER INFOR MATIO N: Menst rual Statu s: LMP (if appli cable ): Clini hunter Histo ry/Pr eviou s Pap: Type of Neopl roxanne (if appli cable ): Signi fican t Clini hunter Findi ngs: Other Histo ry: Hormo deedee (if appli cable ): PAP EDUCA YAIR L NOTE: The Pap Test is a scree isiah test with an inher ent false negat shar rate. Liqui d-bas ed sampl ing may decre ase, but will not elimi jericho, false negat shar resul ts. A negat shar resul t does not precl ude the prese nce and/o r devel opmen t of disea se, since the prese nce of abnor mal cells in the sampl e depen ds on the locat ion of the lesio n and sampl ing techn ique. Prudence nued regul ar scree isiah is the best metho d of cance r preve ntion . If repor carlos enrique cytol ogic findi ng do not corre late with physi hunter and/o r histo rical findi ngs, furth er inves tigat ion is recom bria d, as clini matthew díaz nted. Not Available [facility] (Lab) [address], [place], [address], 12/16/2022 16:21:11 12/16/19 23 12/15/2022 pregn elvis test, urine HCG negati ve Not Available [facility] [address], [place], [address], 12/15/2022 11:58:55 12/19/19 24 12/19/2023 IMAGE GUIDE D PAP AND HPV REGAR DLESS image guided Pap, HPV regardless of Pap result SEE RESULT S BELOW CASE REPOR T: Cytol ogy Gynec ologi hunter Repor t Case: [id number] Autho brooke haney Provi heather: Favio Alcantara MD Colle cted: 12/18 1106 Order ing Locat ion: [place] [facility] Recepeterson ashley: 12/19 0814 First Sharoned n: Maria De Jesus Subramanian een: Mauricio Amaya Speci men: Seth ojyce Pap - Image d, Cervi x STATE MENT OF ADEQU ACY: Satis facto ry for evalu ation Trans forma tion zone compo nent prese nt ----- ----- ----- ----- ----- ----- ----- ----- ----- ----- ----- ----- ----- ----- ----- ----- ----- ---- FINAL DIAGN OSIS: Negat shar for Intra epith elial Seth gutierrez or Onesimo oneill (NIL) . Elect julio cesar segal by Mauricio Amaya on 024 at 8:44 AM ----- ----- ----- ----- ----- ----- ----- ----- ----- ----- ----- ----- ----- ----- ----- ----- ----- ---- HPV RESUL TS: HPV mRNA E6/E7 : No HPV mRNA Detec carlos enrique NOTE: This high risk HPV mRNA assay detec ts fourt een high- risk HPV types (16, 18, 31, 33, 35, 39, 45, 51, 52, 56, 58, 59, 66, 68) witho ut diffe renti ation . COMME NT: This speci men was revie wed by a Cytot echno logis t and/o r Patho logis t (as indic ated in this repor t) after evalu ation using the Thinp rep Imagi ng Syste m. CLINI HUNTER INFOR MATIO N: Menst rual Statu s: LMP (if appli cable ): Clini hunter Histo ry/Pr eviou s Pap: Type of Neopl roxanne (if appli cable ): Signi fican t Clini hunter Findi ngs: Other Histo ry: Hormo deedee (if appli cable ): PAP EDUCA YAIR L NOTE: The Pap Test is a scree isiah test with an inher ent false negat shar rate. Liqui d-bas ed sampl ing may decre ase, but will not elimi jericho, false negat shar resul ts. A negat shar resul t does not precl ude the prese nce and/o r devel opmen t of disea se, since the prese nce of abnor mal cells in the sampl e depen ds on the locat ion of the lesio n and sampl ing techn ique. Prudence nued regul ar scree isiah is the best metho d of cance r preve ntion . If repor carlos enrique cytol ogic findi ng do not corre late with physi hunter and/o r histo rical findi ngs, furth er inves tigat ion is recom bria d, as clini matthew díaz nted. Not Available [facility] (Lab) [address], [place], [address], 12/26/2023 09:49:06 11/25/19 22 MAMMO , scree isiah, bilat eral No observ ation record ed. [email or web address] [facility] [address], [place], [address], 11/01/2022 16:10:36 04/06/20 24 04/06/2024 MAMMO , scree isiah, bilat eral No observ ation record ed. [email or web address] [facility] [address], [place], [address], 05/01/2024 15:03:26 05/02/19 25 05/01/2024 imagi ng/di agnos tic resul t No observ ation record ed. [facility] [address], [place], [address], 05/03/2024 17:49:08 Result Notes None recorded. Problems Name Problem SNOMED Code Status Onset Date Resolution Date Notes Provider Name and Address Organization Details Recorded Time SNOMED CT Concept Completed 201807/17/2020 Encntr for human resources professional exam (general ) (routine ) w/o abn findings ;Practic e ID: 0001 Corrine mullins [facility] 17:34:01 Routine antenata l care Completed 201307/17/2020 Supervis ion of other normal pregnanc y;Practi ce ID: 0001 Corrine mullins [facility] 17:33:46 Labor and delivery complica carlos enrique by heart rate anomaly [id number] Completed 201307/17/2020 HEART RATE NON REASSURI NG;Pract ice ID: 0001 Corrine mullins [facility] 17:33:30 Delivery normal [id number] Completed 201407/17/2020 Normal delivery ;Practic e ID: 0001 Corrine mullins [facility] 17:33:17 Single live [id number] Completed 201407/17/2020 Mother with single liveborn ;Practic e ID: 0001 Corrine mullins [facility] 17:33:59 Postpart um care Completed 201407/17/2020 Postpart um follow-u p;Practi ce ID: 0001 Corrine mullins [facility] 17:33:39 Adult health examinat ion Completed 201407/17/2020 Routine general medical examinat ion at a health care facility ;Practic e ID: 0001 Corrine Dwaine mullins, [facility] 17:33:07 Speciali zed medical examinat ion Completed 201407/17/2020 Routine gynecolo gical examinat ion;Prac juani ID: 0001 [facility] 17:34:03 Low grade squamous intraepi thelial lesion on cervical Papanico laou smear [id number] 105 Completed 201607/17/2020 Low grade intrepit h lesion cyto smr crvx (LGSIL); Practice ID: 0001 [facility] 17:33:36 Surveill ance of contrace ption Completed 201607/17/2020 Encounte r for surveill ance of contrace ptives, unspecif ied;Prac juani ID: 0001 [facility] 17:34:04 Pregnanc y test negative 573112615 Completed 201607/17/2020 Encounte r for pregnanc y test, result negative ;Practic e ID: 0001 [facility] 17:33:42 Uterine size for dates discrepa ncy Completed 201607/17/2020 Uterine size-herb e discrepa ncy, first trimeste r;Practi ce ID: 0001 Corrine mullins, [facility] 17:34:10 Gestatio n period, 10 weeks [id number] Completed 201607/17/2020 10 weeks gestatio n of pregnanc y;Practi ce ID: 0001 Corrine mullins [facility] 17:33:20 Secondar y amenorrh ea 808268803 Completed 201607/17/2020 Secondar y amenorrh ea;Pract ice ID: 0001 Corrine mullins, [facility] 17:33:55 Pregnanc y detectio n examinat ion Completed 201607/17/2020 Encounte r for pregnanc y test, result positive ;Practic e ID: 0001 Corrine mullins, [facility] 17:33:41 Normal pregnanc y in multigra randi [id number] 4106 Completed 201607/17/2020 Encounte r for suprvsn of normal pregnanc y, second trimeste r;Practi ce ID: 0001 Corrine mullins, [facility] 17:33:38 Uterine size for dates discrepa ncy Completed 201607/17/2020 Uterine size-herb e discrepa ncy, third trimeste r;Practi ce ID: 0001 Corrine mullins, [facility] 17:34:11 Gestatio n period, 36 weeks [id number] Completed 201607/17/2020 36 weeks gestatio n of pregnanc y;Practi ce ID: 0001 Corrine mullins, [facility] 17:33:21 heart finding Completed 201607/17/2020 Abnlt in heart rate and rhythm comp labor and delivery ;Practic e ID: 0001 Corrine mullins, [facility] 17:33:19 Gestatio n period, 38 weeks 70545183 Completed 201607/17/2020 38 weeks gestatio n of pregnanc y;Practi ce ID: 0001 Corrine mullins, [facility] 17:33:23 Lacerati on of female perineum Completed 201607/17/2020 First degree perineal lacerati on during delivery ;Practic e ID: 0001 Corrine mullins, [facility] 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 17:33:27 Gestatio n period, 39 weeks 53472071 Completed 201607/17/2020 39 weeks gestatio n of pregnanc y;Practi ce ID: 0001 Corrine mullins, [facility] 17:33:26 Lochia finding Completed 201607/17/2020 Encounte r for routine postpart um follow-u p;Practi ce ID: 0001 Corrine Isidro [facility], [facility] 17:33:34 Screenin g for malignan t neoplasm of cervix Completed 201707/17/2020 Encounte r for screenin g for malignan t neoplasm of cervix;P ractice ID: 0001 Corrine mullins, [facility] 17:33:57 Leukocyt osis 901936775 Completed 201307/17/2020 LEUKOCYT OSIS NOS;Beni rded Elsewher e: No Locat ion: [facility] S ource: EHR Staff Development Manager екатерина: N Practi ce ID: 0001 Bharathi lable Time: 09:30:00 AM [facility] 17:33:33 Pregnanc y test positive 133723534 Completed 201307/17/2020 Pregnanc y examinat ion or test, positive result;R ecorded Elsewher e: No Locat ion: [facility] S ource: EHR Staff Development Manager екатерина: N Practi ce ID: 0001 Bharathi lable Time: 09:59:00 AM Corrine mullins [facility] 17:33:44 Vaginiti s and vulvovag initis Completed 201307/17/2020 Vaginiti s;Record ed Elsewher e: No Locat ion: [facility] S ource: EHR Staff Development Manager екатерина: N Kendallti ce ID: 0001 Bharathi lable Time: 09:00:00 AM Corrine Isidro [facility] 17:34:13 Ultrason ography Completed 201307/17/2020 Antenata l screenin g for malforma tion using ultrason ics;Beni rded Elsewher e: No Locat ion: [facility] S ource: EHR Staff Development Manager екатерина: N Kendallti ce ID: 0001 Bharathi lable Time: 09:15:00 AM [facility] 17:34:07 Antenata l screenin g Completed 201307/17/2020 Antenata l screenin g for malforma tion using ultrason ics;Beni rded Elsewher e: No Locat ion: [facility] S ource: EHR Staff Development Manager екатерина: N Kendallti ce ID: 0001 Bharathi lable Time: 09:15:00 AM Corrine mullins [facility] 17:33:10 Congenit al malforma tion [id number] Completed 201307/17/2020 Antenata l screenin g for malforma tion using ultrason ics;Beni rded Elsewher e: No Locat ion: [facility] S ource: EHR Staff Development Manager екатерина: N Kendallti ce ID: 0001 Bharathi lable Time: 09:15:00 AM Corrine [facility] 17:33:14 Urinary tract infectio us disease 11401060 Completed 201007/17/2020 Urinary tract infectio n, site not specifie d;Practi ce ID: 0001 Corrine mullins, [facility] 17:34:08 Microsco pic hematuri a 507855810 Completed 201007/17/2020 HEMATURI A MICROSCO PIC;Prac juani ID: 0001 Corrine mullins, [facility] 17:33:37 Cytologi c finding [id number] Completed 201007/17/2020 Pap Abnormal LGSIL;Pr actice ID: 0001 Corrine mullins, [facility] 17:33:16 Breast lump [id number] Completed 201307/17/2020 Lump or mass in breast;P ractice ID: 0001 Corrine mullins, [facility] 17:33:13 Amenorrh ea 12142362 Completed 201307/17/2020 AMENORRH EA;Pract ice ID: 0001 Corrine Isidro [facility], [facility] 17:33:09 Swelling of limb 38890924 Completed 201307/17/2020 Swelling of limb;Pra ctice ID: 0001 [facility] 17:34:05 Primigra randi 280111911 Completed 201307/17/2020 Supervis ion of normal first pregnanc y;Practi ce ID: 0001 [facility] 17:33:[address] Concept Completed 201507/17/2020 Encntr for general adult medical exam w/o abnormal findings ;Recorde d Elsewher e: No Locat ion: Parrish ruiz [facility] S ource: EHR Staff Development Manager екатерина: N Practi ce ID: 0001 Bharathi lable Time: 04:30:00 PM Corrine mullins [facility] 17:34:00 Inflamma tory disorder of breast 714857001 Completed 201807/17/2020 Mastitis ;Recorde d Elsewher e: No Locat ion: [facility] S ource: EHR Staff Development Manager екатерина: N Practi ce ID: 0001 Bharathi lable Time: 11:00:00 AM Corrine mullins, [facility] 17:33:29 Body mass index 25-29 - overweig ht 682889151 Completed 201707/17/2020 Body mass index (BMI) 28.0-28. 9, adult;Re corded Elsewher e: No Locat ion: [facility] S ource: EHR Staff Development Manager екатерина: N Kendallti ce ID: 0001 Bharathi lable Time: 11:00:00 AM Corrine mullins, [facility] 17:33:12 Problem Notes None recorded. Procedures Surgical History Date Name Laterality Status Provider Name and Address Organization Details Recorded Time 2 Date of Last Pap Smear completed Yris Chavez [facility] 12/15/2022 11:43:15 4 Date of Last Mammogram completed Ame Desouza [facility] 09/09/2021 11:54:40 1 extraction of wisdom tooth completed Stephanie Roberson [facility] 05/06/2020 13:07:29 Imaging Results Imaging Date Name Status LastModified by Organiz ation Details LastModified Time 11/24/2021 MAMMO, screening, bilateral completed [address] [facility] [address], [place], [address], 11/01/2022 16:10:36 04/06/2024 MAMMO, screening, bilateral completed [address] [place] [address] [address], [place], [address], 05/01/2024 15:03:26 05/01/2024 imaging/diagno stic result completed [place] [address] [facility] [address], [place], [address], 05/03/2024 17:49:08 Procedure Notes None recorded. Medical Equipment None Reported. Allergies Allergen ID Allergen Name Allergen Category Reaction Reaction Severity Criticality Documentation Date Start Date Code Code System Note Provider Name and Address Organization Details Recorded Time 9508 poison fernando extract environme nt Not available Not available Not available 04/11/2020 25239 6 RxNorm Comme nt: [facility]at [facility]; Not Available [facility] 0 14:14:24 Medications Name Sig Start Date Stop Date Status Note LastModified by Organization Details LastModified Time dicloxaci llin 500 mg capsule take 1 capsule by oral route every 6 hours 1 hour before a meal or 2 hours after a meal 05/06 completed Prescrib ed Elsewher e: No Locat ion: [facility] odify By: kpanyik Jonny hidalgo DateTime : 01/12/20 11:00:00 AM Not Available Not Available Not Available atorvasta tin 20 mg tablet TAKE 1 TABLET BY MOUTH ONCE DAILY 12/18 completed Not Available Not Available Not Available Necon 1/35 (28) 1 mg-35 mcg tablet take 1 tablet by oral route every day 11/28 completed Prescrib ed Elsewher e: No Locat ion: [facility] odify By: mirna ray DateTime : 10/11/19 04:42:29 PM Not Available Not Available Not Available ofloxacin 0.3 % eye drops INSTILL ONE TO TWO DROPS INTO AFFECTED EYE(S) EVERY TWO TO FOUR HOURS FOR TWO DAYS, THEN ONE TO TWO DROPS FOUR TIMES DAILY FOR THREE TO SEVEN DAYS 12/18 completed Not Available Not Available Not Available hydrocodo ne 5 mg-acetam inophen 325 mg tablet TAKE 1 TABLET BY MOUTH EVERY 4 TO 6 HOURS NEEDED FOR PAIN 12/18 completed Not Available Not Available Not Available Diflucan 150 mg tablet take 1 tablet by oral route once 10/23 completed Prescrib ed Elsewher e: No Locat ion: [facility] odify By: merlin fuentes DateTime : 10/16/19 14 04:23:45 PM Not Available Not Available Not Available methylpre dnisolone 4 mg tablets in a dose pack TAKE BY MOUTH DIRECTED ON INSIDE OF PACKAGE 12/18 completed Not Available Not Available Not Available Vitamin D2 1,250 mcg (50,000 unit) capsule take 1 capsule by oral route every week 07/06 completed Prescrib ed Elsewher e: No Locat ion: [facility] odify By: leeann hidalgo DateTime : 03/04/20 14 10:30:00 AM Not Available Not Available Not Available amoxicill in 875 mg-potass ium clavulana te 125 mg tablet TAKE 1 TABLET BY MOUTH EVERY 12 HOURS FOR 10 DAYS 12/18 completed Not Available Not Available Not Available Bactrim DS 800 mg-160 mg tablet take 1 tablet by oral route every 12 hours 10/23 completed Prescrib ed Elsewher e: No Locat ion: [facility] odify By: merlin fuentes DateTime : 10/11/19 14 09:00:00 AM Not Available Not Available Not Available Comfort 0.35 mg tablet take 1 tablet by oral route every day 12/08 completed Prescrib ed Elsewher e: No Locat ion: [facility] odify By: rojelio harountjeanna DateTime : 06/27/19 15 10:15:00 AM Not Available Not Available Not Available Ortho-Cyc marie (28) 0.25 mg-35 mcg tablet take 1 tablet by oral route every day 08/27 completed Prescrib ed Elsewher e: No Locat ion: [facility] odify By: roberto hidalgo DateTime : 06/14/19 17 09:30:00 AM Not Available Not Available Not Available Vitamin C active Not Available Not Griselda ilable Not Available Fish Oil active Not Available Not Avai lable Not Available Claritin active Not Available Not Avai lable Not Available Vitamin D active Not Available Not Griselda ilable Not Available 09/09 completed Not Available Not Available Not Available Vitamin active Not Available Not Available Not Available apple cider vinegar active Not Available Not Available Not Available Triveen-D uo DHA 29 mg-1 mg-400 mg oral pack take 2 by Oral route once for 30 days 12/21 completed Prescrib ed Elsewher e: No Locat ion: [facility] odify By: arnold ray DateTime : 11/23/19 09:30:00 AM Not Available Not Available Not Available 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 A 28 mg iron-1 mg-200 mg capsule take 1 capsule by oral route every day 07/17 completed Prescrib ed Elsewher e: No Locat ion: [facility] odify By: chinmay fuentes DateTime : 07/07/19 11:00:00 AM Not Available Not Available Not Available Slynd 4 mg (28) tablet Take 1 tablet by mouth once daily 2023 active Not Available Not Available Not Avai lable Vitals Date Recorded Body height Body mass index (BMI) Body weight Systolic blood pressure Diastolic blood pressure Provider Name and Address Organization Details Last Updated DateTime 07/18/2020 165.1 cm 28.3 kg/m2 07620.7 g 120 mm[Hg] 86 mm[Hg] Corrine Isidro [facility] 15:57:05 Date Recorded Body height Body mass index (BMI) Body weight Provider Name and Address Organization Details Last Updated DateTime 09/09/2021 165.1 cm 25.8 kg/m2 93442.82 g Ame Desouza [facility] 09/09/2021 11:53:36 Date Recorded Systolic blood pressure Diastolic blood pressure Provider Name and Address Organization Details Last Updated DateTime 09/09/2021 122 mm[Hg] 80 mm[Hg] Veronica Byoce, [facility]- [address], [place], [address], [facility] 09/09/2021 12:21:58 Date Recorded Body height Body mass index (BMI) Body weight Systolic blood pressure Diastolic blood pressure Provider Name and Address Organization Details Last Updated DateTime 12/15/2022 165.1 cm 28.8 kg/m2 08146.48 g 116 mm[Hg] 80 mm[Hg] Yris Chavez [facility] 3 11:41:59 Date Recorded Body height Body mass index (BMI) Body weight Systolic blood pressure Diastolic blood pressure Provider Name and Address Organization Details Last Updated DateTime 12/19/2023 165.1 cm 30.2 kg/m2 97465.66 g 132 mm[Hg] 86 mm[Hg] Sanjana Cynthia [facility] 4 10:50:05 Date Recorded Body height Body mass index (BMI) Body weight Systolic blood pressure Diastolic blood pressure Provider Name and Address Organization Details Last Updated DateTime 05/06/2020 165.1 cm 28.5 kg/m2 47108.3 g 116 mm[Hg] 80 mm[Hg] Stpehanie Da [facility] 14:38:07 Social History Question Answer Notes LastModified by Organizat ion Details LastModified Time Tobacco Smoking Status Never [facility]oker [facility] 05/06/2020 13:07:07 What Is Your Level Of Alcohol Consumption? Occasional Information not available 09/09/2021 Are You Blind Or Do You Have Difficulty Seeing? No Information not available 09/09/2021 What Is Your Level Of Caffeine Consumption? Occasional Information not available 09/09/2021 Are You Deaf Or Do You Have Serious Difficulty Hearing? No Information not available 09/09/2021 What Type Of Diet Are You Following? REGULAR Information not available 09/09/2021 Do You Or Have You Ever Used E-cigarettes Or Vape? Never Used Electronic Cigarettes Information not available 05/06/2020 What Was The Date Of Your Most Recent Tobacco Screening? 05/06/2020 Information not available 05/06/2020 Do You Use Your Seat Belt Or Car Seat Routinely? Yes Information not available 09/09/2021 Are You Sexually Active? Yes Information not available 09/09/2021 Do You Have Smoke And Carbon Monoxide Detectors In Your Home? Yes Information not available 09/09/2021 Do You Or Have You Ever Used Smokeless Tobacco? Never Used Smokeless Tobacco Information not available 05/06/2020 How Much Tobacco Do You Smoke? No Information not available 05/06/2020 Do You Feel Stressed (tense, Restless, Nervous, Or Anxious, Or Unable To Sleep At Night)? [id number] Information not available 09/09/2021 Do You Use Any Illicit Or Recreational Drugs? No Information not available 09/09/2021 Do You Use Sunscreen Routinely? Yes Information not available 09/09/2021 How Many Years Have You Smoked Tobacco? 0 Information not available 05/06/2020 Sex: Unknown Functional Status Question Answer Note LastModified by Organizat ion Details LastModified Time Do you have difficulty walking or climbing stairs? No Information not available 09/09/2021 Are you able to walk? YESWOREST Information not available 09/09/2021 Are you able to care for yourself? Yes Information not available 09/09/2021 Do you have difficulty dressing or bathing? No Information not available 09/09/2021 What is your exercise level? Occasional Information not available 09/09/2021 Mental Status None recorded. Family History Relationship Description Onset Age of this Age Resolved Age Notes LastModified by Organization Details LastModified Time Mother Malignant tumor of pancreas Not available 2020 13:06:34 Mother Disorder of thyroid gland Not available 2020 13:06:47 Mother Diabetes mellitus Not available 2020 13:06:52 Mother Coronary arterioscler osis Not available 2020 13:07:04 Mother Hypertensive disorder Not available 2020 14:39:00 Mother Hypercholest erolemia Not available 2020 14:39:07 Father Hypercholest erolemia [email or web address] Not available 2020 14:39:07 Father Peripheral degeneration of cornea Not available 2020 14:39:20 Medical History Condition Response High Cholesterol Y Gynecological History Statement/Question Response Abnormal Pap N Date of Last Mammogram 11/05/2013 Date of LMP STIs/STDs Y HPV Vaccine N Current Control Method BCPs Are cycles usually normal N Sexually Active? Y Menses Monthly N Age of first menstrual cycle 14 Date of Last Pap Smear 09/09/2021 Sexual Problems? N LMP Approximate Obstetrics History GPAL:G 5 P 3 0 2 3 Type Value Full Term 3 Spontaneous 2 Living 3 Total 5 Past Encounters Encounter ID Performer Location Encounter Start Date Encounter Closed Date Diagnosis/Indication Diagnosis SNOMED-CT Code Diagnosis ICD10 Code Diagnosis Note [id number] Veronica Boyce [facility] [address] [address] 05/06/2020 14:24:51 05/10/2020 12:03:48 Gynecologic examination 86186036 Z01.419 Take Calcium with Vitamin D 1200mg daily if not receiving in daily diet. It is strongly advised to have an annual flu shot and up can obtain at most pharmacies . If you have not had a TDap shot in the last 10 years you should obtain one as well. Discussed with patient & provided with informatio n regarding Gardisil vaccine to prevent the 4 strains for HPV that cause cervical cancer if under age 26. Encourage safe sexual practices, to use condoms and limit partners if not already in a monogamous relationsh ip. Do monthly self breast exams. Have mammogram yearly or every other year depending on family history. BRCA testing is now available for patients with strong genetic history of female cancer. If interested contact the office. Engage in daily exercise of low impact aerobic exercise 45-60 minutes 4-5 times weekly. Avoid tobacco and illicit drugs as well as using moderation with alcohol intake less than 1-2 8 oz beverages daily. This lifestyle behavior pattern will lead to less health conditions and longer life span. If BMI greater than 25 weight watchers or dietary consult advised. Patient received above instructio ns, and questions have been answered. If you have any questions please call or respond to this email. Patient was made aware of the patient portal and may obtain a paper copy of today's plan if desired. Additional precaution imtiaz measures were taken to minimize potential exposure to the Covid-19 virus during this patient? s visit, including available hand manager recruitment upon arrive, temperatur e check and being asked a series of screening questions. All staff wore face coverings during this encounter, as well as provided additional cleaning and sanitizing of all surfaces, including countertop s, pens, chairs, door handles, light switches, etc, prior to and following the patient? s visit. Contracept ion care management 748856839 Z30.9 Discussed all control options and pt is considerin g an IUD. I have discussed in detail all risks and benefits including risk of infection and perforatio n. She understand s she will need to contact office with next menses or may abstain, complete serum HCG day before placement, if neg can have IUD placed next day. Aware of need to verify with insurance device coverage. Literature given. All questions answered to patient satisfacti on. Will call if wants to proceed. [id number] Veronica Boyce [facility] [address] [address] 07/18/2020 15:39:56 07/18/2020 16:36:39 Contraception care management 176269323 Z30.9 Patient is here today for a medicaton check of control SLYND She voices goals of therapy have been met with use of this therapy. She denies neg side effects. She is eating, drinking, sleeping well; moods are stable & periods are well regulated. Wishes to continue this method of BC. Appropriat e to continue this medication . RF sent x 1yr Consent updated Time spent in visit is a total of 15 mins with at least 50% of visit consisting of counseling and review of plan of care. [id number] [facility] [address] [address] 09/09/2021 11:42:27 09/09/2021 13:10:49 Gynecologic examination 38618522 Z01.419 Take Calcium with Vitamin D 1200mg daily if not receiving in daily diet. It is strongly advised to have an annual flu shot and up can obtain at most pharmacies . If you have not had a TDap shot in the last 10 years you should obtain one as well. Discussed with patient & provided with informatio n regarding Gardisil vaccine to prevent the 4 strains for HPV that cause cervical cancer if under age 26. Encourage safe sexual practices, to use condoms and limit partners if not already in a monogamous relationsh ip. Do monthly self breast exams. Have mammogram yearly or every other year depending on family history. BRCA testing is now available for patients with strong genetic history of female cancer. If interested contact the office. Engage in daily exercise of low impact aerobic exercise 45-60 minutes 4-5 times weekly. Avoid tobacco and illicit drugs as well as using moderation with alcohol intake less than 1-2 8 oz beverages daily. This lifestyle behavior pattern will lead to less health conditions and longer life span. If BMI greater than 25 weight watchers or dietary consult advised. Patient received above instructio ns, and questions have been answered. If you have any questions please call or respond to this email. Patient was made aware of the patient portal and may obtain a paper copy of today's plan if desired. Pap/hpv sentSTD Screen declinedGe netic Screen discussed & accepted. Informatio n given. Will complete.C olon Screen naDexa Screen naRoutine Labs UTD PCPMammo ordered Contracept ion care management [id number] Z30.9 Happy on SLYND.RF sent x 1yr [id number] Veronica Boyce [facility] [address] [address] 12/15/2022 11:18:40 12/15/2022 13:37:21 Amenorrhea [id number] N91.2 UPT NegMissed one slynd tablet & felt nervous.Do esn't have periods every month on slynd; wanted to make sure no . Gynecologi c examination 26496302 Z01.419 Z11.51 Take Calcium with Vitamin D 1200mg daily if not receiving in daily diet. It is strongly advised to have an annual flu shot and up can obtain at most pharmacies . If you have not had a TDap shot in the last 10 years you should obtain one as well. Discussed with patient & provided with informatio n regarding Gardisil vaccine to prevent the 4 strains for HPV that cause cervical cancer if under age 26. Encourage safe sexual practices, to use condoms and limit partners if not already in a monogamous relationsh ip. Do monthly self breast exams. Have mammogram yearly or every other year depending on family history. BRCA testing is now available for patients with strong genetic history of female cancer. If interested contact the office. Engage in daily exercise of low impact aerobic exercise 45-60 minutes 4-5 times weekly. Avoid tobacco and illicit drugs as well as using moderation with alcohol intake less than 1-2 8 oz beverages daily. This lifestyle behavior pattern will lead to less health conditions and longer life span. If BMI greater than 25 weight watchers or dietary consult advised. Patient received above instructio ns, and questions have been answered. If you have any questions please call or respond to this email. Patient was made aware of the patient portal and may obtain a paper copy of today's plan if desired. Pap/hpv sentSTD Screen declinedGe netic Screen discussed & accepted. Informatio n given. Will complete.C olon Screen naDexa Screen naRoutine Labs UTD PCPMammo ordered Screening mammography 24 921285 Z12.31 Contracept ion care management 471170271 Z30.9 Happy on SLYND.RF sent x 1yr [id number] KARI BLACK MD [facility] [address] [address] 12/19/2023 10:39:00 12/19/2023 11:14:44 Contraception care management 104378212 Z30.9 Gynecologi c examination 85599698 Z01.419 Well woman care- Cervical cancer screening: Pap smear not indicated obtained today, will follow up on the results with the patient as they become available- Breast cancer screening: mammogram ordered- Colon cancer screening: does not qualify- STD testing: declined- hereditary cancer screening: does not qualify for testing Health Concerns Section Related Observation LastModified by Organization Detai ls LastModified Time None Recorded Concern Status LastModified by Organization Details LastModified Time None Recorded Advance Directives Directive None Recorded Payers Encounter Date Sequence Insurance Name Policy Number Policy Dooley Covered Member ID Dooley Member ID Guarantor Name 05/06/2020 1 [facility] (MEDICAID HMO) [id number] Gaviota Guajardo [id number] Gaviota Guajardo 07/18/2020 1 [facility] (MEDICAID HMO) [id number] Gaviota Guajardo [id number] Gaviota Guajardo 09/09/2021 1 [facility] (MEDICAID HMO) [id number] Gaviota Guajardo [id number] Gaviota Guajardo 12/15/2022 1 [facility] (MEDICAID HMO) [id number] Gaviota Guajardo [id number] Gaviota Guajardo 12/19/2023 1 [facility] (MEDICAID HMO) [id number] 0003 Gaviota Guajardo [id number] Gaviota Guajardo Notes Date Note Type Note Provider Name and Address Organization Details Recorded Time 05/06/2020 text/html Annual GYNReport ed bypatient.History:no gynecologic complaints Menstrual cycle:Normal menses Urinary symptoms:No hematuria; No incontinence Vulva:No genital lesion Vagina:Normal vaginal discharge Breast:No breast pain; No breast lump; No nipple discharge Current Contraception:Wants to discuss contraceptive options Sexual complaints:No sexual complaints; No pain during intercourse; Normal libido Menopausal Symptoms:No menopausal symptoms; Normal vaginal lubrication Psychological symptoms:No depression; No anxiety; No PMDD Preventive measures:Encourage self breast examination; Encourage regular exercise; Encourage no tobacco use; Encourage regular mammograms starting age 40 LORENZA Espinosa [address], [place], [address], [facility] 05/14/2020 13:15:22 07/18/2020 text/html Patient is here today for a medicaton check of control SLYND. She voices goals of therapy have been met with use of this therapy. She denies neg side effects. She is eating, drinking, sleeping well; moods are stable & periods are well regulated. Wishes to continue this method of BC. Appropriate to continue this medication. KWABENA Espinosa [address], [place], [address], [facility] 07/18/2020 16:35:07 09/09/2021 text/html Annual GYNReport ed bypatient.History:no gynecologic complaints Menstrual cycle:Normal menses Urinary symptoms:No hematuria; No incontinence Vulva:No genital lesion Vagina:Normal vaginal discharge Breast:No breast pain; No breast lump; No nipple discharge Current Contraception:Satisf ied with current contraception; Monogamous relationship; Oral contraceptives Sexual complaints:No sexual complaints; No pain during intercourse; Normal libido Menopausal Symptoms:No menopausal symptoms; Normal vaginal lubrication Psychological symptoms:No depression; No anxiety; No PMDD Preventive measures:Encourage self breast examination; Encourage regular exercise; Encourage no tobacco use; Encourage regular mammograms starting age 40; Followed with Q3 year pap smear and high risk HPV typing; History of abnormal pap smear/cervical dysplasia; Needs to schedule mammogram Veronica Boyce [facility] [address], [place], [address], [facility] 09/09/2021 12:23:23 12/15/2022 text/html Annual GYNReport ed bypatient.History:no gynecologic complaints Menstrual cycle:Normal menses Urinary symptoms:No hematuria; No incontinence Vulva:No genital lesion Vagina:Normal vaginal discharge Breast:No breast pain; No breast lump; No nipple discharge Current Contraception:Satisf ied with current contraception; Oral contraceptives Sexual complaints:No sexual complaints; No pain during intercourse; Normal libido Menopausal Symptoms:No menopausal symptoms; Normal vaginal lubrication Psychological symptoms:No depression; No anxiety; No PMDD Preventive measures:Encourage self breast examination; Encourage regular exercise; Encourage no tobacco use; Encourage regular mammograms starting age 40; Followed with yearly pap smears; Needs to schedule mammogram [facility] [address], [place], [address], [facility] 12/15/2022 13:36:59 12/19/2023 text/html Presents today f or her annual well-woman exam. Denies abnormal vaginal discharge. She is sexually active and denies dyspareunia. She is using Slynd for contraception, and she states that she is satisfied with this method. She has not noticed any changes or masses in her breasts. Has mammogram scheduled. Periods irregular with Slynd. KARI BLACK MD [address], [place], [address], [facility] 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 Status 05/06/19 21 1 CLOSED Fetus Data First Name Last Name Admitted to NICU Weight (g) Sex Living Outcome Pediatric Complications Fetus ID Race Codes Race Delivery Type , Spontane ous 7043 Sukhwinder Calculation Initial Sukhwinder Date Initial Exam Date Initial Exam Provider Initial Ultrasound Date Last Menstrual Period Date Ultra Sound Weeks Gestation 0 Eighteen To Twenty Week Sukhwinder Update Ultra Sound Date Fundal Height At Umbil Quickening Date Ultra Sound Latest Weeks Gestation Final Sukhwinder Confirmed By Final Sukhwinder Confirmed Date Final Sukhwinder Date Ultra Sound Latest Days Gestation 0 0 Menstrual History Last Menstrual Date Menses Monthly On Bcp Conception Prior Menses Frequency Hcg Plus Date Menarche Onset Age Delivery Information Delivery Date Delivery Type Labor Anesthesia Weeks Gestation Incision Type Labor Labor Length Hrs Delivered By Post Complications Tubal Sterilization Discharge Date Comments 8 Discharge Information Feeding Method Contraceptive Method Maternal HG B and HCT Levels Ob Episode Information Episode Created Date Number of Fetuses Patient Bloodtype Patient rh Status Prepregnancy Weight lbs Domestic Partner Domestic Partner Phone Father Name Pole Peeling Machine Operator Status 05/06/19 21 1 CLOSED Fetus Data First Name Last Name Admitted to NICU Weight (g) Sex Living Outcome Pediatric Complications Fetus ID Race Codes Race Delivery Type M Full Term 7041 Vaginal Delivery Sukhwinder Calculation Initial Sukhwinder Date Initial Exam Date Initial Exam Provider Initial Ultrasound Date Last Menstrual Period Date Ultra Sound Weeks Gestation 0 Eighteen To Twenty Week Sukhwinder Update Ultra Sound Date Fundal Height At Umbil Quickening Date Ultra Sound Latest Weeks Gestation Final Sukhwinder Confirmed By Final Sukhwinder Confirmed Date Final Sukhwinder Date Ultra Sound Latest Days Gestation 0 0 Menstrual History Last Menstrual Date Menses Monthly On Bcp Conception Prior Menses Frequency Hcg Plus Date Menarche Onset Age Delivery Information Delivery Date Delivery Type Labor Anesthesia Weeks Gestation Incision Type Labor Labor Length Hrs Delivered By Post Complications Tubal Sterilization Discharge Date Comments 7 Discharge Information Feeding Method Contraceptive Method Maternal HG B and HCT Levels Ob Episode Information Episode Created Date Number of Fetuses Patient Bloodtype Patient rh Status Prepregnancy Weight lbs Domestic Partner Domestic Partner Phone Father Name Pole Peeling Machine Operator Status 05/06/19 21 1 CLOSED Fetus Data First Name Last Name Admitted to NICU Weight (g) Sex Living Outcome Pediatric Complications Fetus ID Race Codes Race Delivery Type M Full Term 7040 Vaginal Delivery Sukhwinder Calculation Initial Sukhwinder Date Initial Exam Date Initial Exam Provider Initial Ultrasound Date Last Menstrual Period Date Ultra Sound Weeks Gestation 0 Eighteen To Twenty Week Sukhwinder Update Ultra Sound Date Fundal Height At Umbil Quickening Date Ultra Sound Latest Weeks Gestation Final Sukhwinder Confirmed By Final Sukhwinder Confirmed Date Final Sukhwinder Date Ultra Sound Latest Days Gestation 0 0 Menstrual History Last Menstrual Date Menses Monthly On Bcp Conception Prior Menses Frequency Hcg Plus Date Menarche Onset Age Delivery Information Delivery Date Delivery Type Labor Anesthesia Weeks Gestation Incision Type Labor Labor Length Hrs Delivered By Post Complications Tubal Sterilization Discharge Date Comments 5 Discharge Information Feeding Method Contraceptive Method Maternal HG B and HCT Levels Ob Episode Information Episode Created Date Number of Fetuses Patient Bloodtype Patient rh Status Prepregnancy Weight lbs Domestic Partner Domestic Partner Phone Father Name Pole Peeling Machine Operator Status 05/06/19 21 1 CLOSED Fetus Data First Name Last Name Admitted to NICU Weight (g) Sex Living Outcome Pediatric Complications Fetus ID Race Codes Race Delivery Type F Full Term [id number] Vaginal Delivery Sukhwinder Calculation Initial Sukhwinder Date Initial Exam Date Initial Exam Provider Initial Ultrasound Date Last Menstrual Period Date Ultra Sound Weeks Gestation 0 Eighteen To Twenty Week Sukhwinder Update Ultra Sound Date Fundal Height At Umbil Quickening Date Ultra Sound Latest Weeks Gestation Final Sukhwinder Confirmed By Final Sukhwinder Confirmed Date Final Sukhwinder Date Ultra Sound Latest Days Gestation 0 0 Menstrual History Last Menstrual Date Menses Monthly On Bcp Conception Prior Menses Frequency Hcg Plus Date Menarche Onset Age Delivery Information Delivery Date Delivery Type Labor Anesthesia Weeks Gestation Incision Type Labor Labor Length Hrs Delivered By Post Complications Tubal Sterilization Discharge Date Comments 5 Discharge Information Feeding Method Contraceptive Method Maternal HG B and HCT Levels Ob Episode Information Episode Created Date Number of Fetuses Patient Bloodtype Patient rh Status Prepregnancy Weight lbs Domestic Partner Domestic Partner Phone Father Name Pole Peeling Machine Operator Status 05/06/19 21 1 CLOSED Fetus Data First Name Last Name Admitted to NICU Weight (g) Sex Living Outcome Pediatric Complications Fetus ID Race Codes Race Delivery Type , Spontane ous [id number] Sukhwinder Calculation Initial Sukhwinder Date Initial Exam Date Initial Exam Provider Initial Ultrasound Date Last Menstrual Period Date Ultra Sound Weeks Gestation 0 Eighteen To Twenty Week Sukhwinder Update Ultra Sound Date Fundal Height At Umbil Quickening Date Ultra Sound Latest Weeks Gestation Final Sukhwinder Confirmed By Final Sukhwinder Confirmed Date Final Sukhwinder Date Ultra Sound Latest Days Gestation 0 0 Menstrual History Last Menstrual Date Menses Monthly On Bcp Conception Prior Menses Frequency Hcg Plus Date Menarche Onset Age Delivery Information Delivery Date Delivery Type Labor Anesthesia Weeks Gestation Incision Type Labor Labor Length Hrs Delivered By Post Complications Tubal Sterilization Discharge Date Comments 1 Discharge Information Feeding Method Contraceptive Method Maternal HG B and HCT Levels
--- OUTSIDE RECORDS SUMMARY | 2024-05-08 06:30 | XMS_ITS | Clinical Summary ---
Author Organization [facility] Address [address] [place] [address] Phone Care Team Providers Care Help Desk Associate Name Role Phone Provider, Unknown Primary Care Provider Unavaila ble Social History Tobacco Use Types Packs/Day Years Used Date Smoking Tobacco: Never Assessed Comments Unknown Sex and Gender Information Value Date Recorded Sex Assigned at Not on file Legal Sex Female 11:44 PM CDT Gender Identity Not on file Sexual Orientation Not on file Plan of Treatment Not on file Care Teams Help Desk Associate Relationship Specialty Start Date End Date Provider, Unknown UNKNOWN PCP - General 09/03/16
--- OUTSIDE RECORDS SUMMARY | 2024-05-08 06:30 | XMS_ITS | Encounter Summary ---
Author Organization [facility] Health Address [address] [facility] [place] [address] Care Team Providers Care Pantry Worker Name Role Phone Unavailable Primary Care Provider Unavailabl e Reason for Visit * Reason Comments Future Appointment Encounter Details Date Type Department Care Team (Late st Contact Info) Description 09/02/2022 Telephone [facility] - [address], [place] [phone] Niru Brugess, RN Future Appointment Social History Tobacco Use Types Packs/Day Years Used Date Smoking Tobacco: Never Assessed Sex and Gender Information Value Date Recorded Sex Assigned at Not on file Gender Identity Not on file Sexual Orientation Not on file documented as of this encounter Miscellaneous Notes * Telephone Encounter - Niru Burgess, RN - 09/02/2022 1:03 PM CDT Called patient to schedule appointment with Dr. Lal or Dr. Oliver for family history of pancreatic cancer, no answer. documented in this encounter Plan of Treatment Not on file documented as of this encounter Visit Diagnoses Not on filedocumented in this encounter
--- OUTSIDE RECORDS SUMMARY | 2024-05-08 06:30 | XMS_ITS | Encounter Summary ---
Author Organization [facility] Health Address [address] [facility] [place] [address] Care Team Providers Care Building Superintendent Name Role Phone Unavailable Primary Care Provider Unavailabl e Reason for Visit * Reason Comments Future Appointment Encounter Details Date Type Department Care Team (Late st Contact Info) Description 09/03/2022 Telephone [facility] - [address] [phone] Niru Burgess, RN Future Appointment Social History Tobacco Use Types Packs/Day Years Used Date Smoking Tobacco: Never Assessed Sex and Gender Information Value Date Recorded Sex Assigned at Not on file Gender Identity Not on file Sexual Orientation Not on file documented as of this encounter Miscellaneous Notes * Telephone Encounter - Niru Burgess, RN - 09/03/2022 9:35 AM CDT Called patient and left message on voicemail to return call to schedule appointment with Dr. Lal or Dr. Oliver. documented in this encounter Plan of Treatment Not on file documented as of this encounter Visit Diagnoses Not on filedocumented in this encounter
--- OUTSIDE RECORDS SUMMARY | 2024-05-08 06:30 | XMS_ITS | Encounter Summary ---
Author Organization [facility] Address [address] [place] [address] Care Team Providers Care Battery Test Engineer Name Role Phone Unavailable Primary Care Provider Unavailabl e Encounter Details Date Type Department Care Team (Latest Contact Info) Description 02/12/2014 8:45 AM CDT - 02/12/2014 11:59 PM CDT Hospital Encounter [facility] [address] [place], [place] [phone] Clement Bee MD [address] [facility] [address] [place] [address] Discharge Disposition: Home or Self Care Social History Tobacco Use Types Packs/Day Years Used Date Smoking Tobacco: Never Assessed Comments Yes Sex and Gender Information Value Date Recorded Sex Assigned at Not on file Gender Identity Not on file Sexual Orientation Not on file documented as of this encounter Plan of Treatment Not on file documented as of this encounter Procedures Procedure Name Priority Date/Time Associated Diagnosis Comments SONOGRAM - COMPLETE Routine 02/12/2014 8 :53 AM CDT Choroid plexus cyst of fetus on ultrasound documented in this encounter Results * SONOGRAM - COMPLETE (02/12/2014 8:53 AM CDT) Anatomical Region Laterality Modality Other 02/12/2014 8:53 AM CDT Narrative 02/22/2014 4:09 PM CDT ?[facility] ? [facility] ?PHONE: ??FAX: ? Pat. Name: ?GAVIOTA GUAJARDO Pat. No: ?[id number] Study Date: ?? 02/12/2014 ??8:53am , Age: ? 1980, 33 LMP: ?08/28/2013 GA by LMP: ?24w0d GA by US: ? 23w5d GA Selected: ??24w0d (LMP) KASHIF: ?06/04/2014 Referring MD: ERIN SERRANO MD Behavioral Health Therapist: ??Stacy Palacios RDMS CPT4: ? 49245 Hist/Ind: ? 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 GROWTH EVALUATION Measurement ??GA ? Range ? Srce %for GA Ratios ----- ---- ------- BPD ??5.7 cm 23w4d ([id number]) Hadl BPD 39% FL/BPD 0.75 (0.71 - 0.87) HC ??21.9 cm 23w6d ([id number]) Hadl HC ??47% FL/AC ??0.22 (0.20 - 0.24) AC ??19.2 cm 24w0d ([id number]) Hadl AC ??49% HC/AC ??1.14 (1.02 - 1.21) FL ?? 4.3 cm 24w1d ([id number]) Hadl FL ??53% CI ? 0.75 (0.70 - 0.86) HL ?? 3.8 cm 23w1d ([id number]) J Luis HL ??37% GA for sonogram 23w5d ([id number]) ?? Weight Estimate: based on (HL,BPD,HC,AC,FL) Avg [...] <Electronic Signature> ??02/12/2014 10:23am Erin Serrano MD [facility] ORDERABLES documented in this encounter Visit Diagnoses Diagnosis Choroid plexus cyst of fetus on ultrasound- Primary documented in this encounter
--- OUTSIDE RECORDS SUMMARY | 2024-05-08 06:30 | XMS_ITS | Encounter Summary ---
Author Organization [facility] Health Address [address] [facility] [place] [address] Care Team Providers Care Engagement Engineer Name Role Phone Unavailable Primary Care Provider Unavailabl e Reason for Visit * Reason Comments General Fam H/O pancreatic c ancer Encounter Details Date Type Department Care Team (Late st Contact Info) Description 10/28/2022 2:00 PM CDT Office Visit [facility] - GI [address] [facility] [place] [address] Unknown, Provider Robbie Diaz MD [address] [place] [address] [place] [address] Family history of cancer (Primary Dx) Social History Tobacco Use Types Packs/Day Years [...] on file documented as of this encounter Last Filed Vital Signs Vital Sign Reading [...] Mass Index 27.96 10/28/2022 2:32 PM CDT documented in this encounter H&P Notes * Mee Cano MD - 10/28/2022 2:54 PM CDT GASTROENTEROLOGY CLINIC CONSULT NOTE PRIMARY CARE PHYSICIAN: No primary care provider on file. REFERRING PHYSICIAN: PCP HPI REASON FOR REFERRAL: Pancreatic CA Screening Gaviota Guajardo is a 42 year old female with no significant PMH presents for above Mom dx at age 65 w/ pancreatic CA, stage 4 at dx, w/ 16 d after Denies other family w/ pancreatic CA Paternal GF w/ colon CA in 70s Overall feeling well no significant medical hx. Denies abdominal pain, nausea/vomiting, hematemesis, coffee ground emesis, melena, hematochezia, heartburn, dysphagia, odynophagia, or change in bowel habits. 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 Review of Systems (Positives in Bold) General: changes in weight, fever/chills, malaise, fatigue, weakness HEENT: headache, vision changes, rhinorrhea, congestion, sore throat Respiratory: cough, shortness of breath Cardiovascular: chest pain, palpitations, dyspnea on exertion or rest, orthopnea, edema Gastrointestinal: See HPI Genitourinary: dysuria, hematuria, frequency, hesitancy, incomplete voiding Musculoskeletal: muscle weakness, joint pain or stiffness Neurological: new numbness, lightheadedness, confusion Hematologic: easy bruising, bleeding Psychiatric: depression, anxiety There is no problem list on file for this patient. No past medical history on file. No past surgical history on file. Social History Tobacco Use ??? Smoking status: Never ??? Smokeless tobacco: Never Substance Use Topics ??? Alcohol use: Yes Comment: 3 per month ??? Drug use: Never Social History Social History Narrative ??? Not on file No family history on file. No Known Allergies Current Outpatient Medications on File Prior to Visit Medication Sig Dispense Refill ??? Slynd 4 MG TABS tablet Take 1 (one) tablet by mouth once daily No current facility-administered medications on file prior to visit. OBJECTIVE BP 122/88 (BP SITE: RIGHT ARM, BP POSITION: SITTING, BP CUFF SIZE: 11) Pulse 56 Temp (!) 96.3 ??F (35.7 ??C) (Temporal) Ht 1.651 m (5' 5 ) Wt 76.2 kg (168 lb) SpO2 94% Body mass index is 27.96 kg/m??. Wt Readings from Last 3 Encounters: 10/28/22 76.2 kg (168 lb) General: NAD and cooperative HEENT: NCAT, non-icteric sclera, MMM Neck: Supple Cardio: RRR Resp: Non-labored respirations Abdomen: Soft, non-tender, non-distended, bowel sounds normal Extremities: No edema Neuro: No focal deficits, no asterixis Rectal: Deferred. LABS: Reviewed IMAGING: Reviewed PREVIOUS ENDOSCOPY: Reviewed ASSESSMENT & PLAN 42 year old female w/ PMH with no significant PMH presents for pancreatic CA screening #Pancreatic CA screening - Currently asx and does not meet criteria despite mom age 65 w/ panc CA for further screening #CRC Screening: Avg risk, begin at age 45 Recs: - No further screening for pancreatic CA required - However if pt does develop sx or finds a relative I.e. sibling develops unfortunate malignancy, to return to clinic Does not need scheduled follow-up. Pt discussed with my attending Dr Benito Cano, DO Gastroenterology Fellow, PGY-V Associated attestation - Robbie Diaz MD - 10/28/2022 4:31 PM CDT I have seen and examined the patient with the Fellow and I agree with the findings and plan of careas documented by the Fellow with the following additions / changes: 42F w/ FMH of pancreas cancer in mother and colon cancer in paternal GF. No other known cancers. No known genetic mutations / hereditary syndromes. Asymptomatic. Discussed possible role of pancreas cancer screening, and earlier / more frequent colon cancer screening if other family members are dx with cancer of with a known genetic disorder. At this time, patient doesn't meet criteria for pancreas cancer screening based on the available information. Patient will call back if any changes. Recommended screening colonoscopy age 46. Patient will follow-up w/ PCP. Robbie Talbert MD [employer] Inspectortile shader Director of Advanced Endoscopy GI Fellowship Associate Windows And Doors Installer Division of Gastroenterology & Hepatology documented in this encounter Plan of Treatment Not on file documented as of this encounter Visit Diagnoses Diagnosis Family history of cancer- Primary Family history of unspecified malignant neoplasm documented in this encounter
== END 2024-05-01 10:43 | disposition home or self-care (01) ==
PROVIDERS: PCP Family Medicine; Visit Provider Registered Nurse
DX: R92.8 Other abnormal and inconclusive findings on diagnostic imaging of breast (principal)
CPT/HCPCS: 76642; 77062; 77066; G0279

== ENCOUNTER 2024-10-11 09:59 | Emergency (ER) | payer OTHER, SELFPAY ==
[2024-10-11 10:10] VITALS: BP 134/97; PULSE 83; RESP 14; TEMP 36.8; O2SAT 100
--- NOTE | 2024-10-11 11:46 | ED_ITS ---
HPI - Eye Problem General Chief complaint: Eye Problems Stated complaint: Left eye is swollen since yesterday Time Seen by Provider: 10/11/24 11:10 Source: patient and RN notes reviewed Mode of arrival: ambulatory Limitations: no limitations History of Present Illness HPI Narrative: 44-year-old female presents Express Care complaining of left eye problem. Patient reports her left lower eyelid is swollen. Patient states symptoms started yesterday. She says the left lateral lower part of her eyelid is tender to palpate. Patient denies any exudate, vision changes, eye pain,, headaches, nausea, vomiting, or any other symptoms. Patient has not tried anything [id number] to help with symptoms. Related Data Home Medications ?Medication ?Instructions ?Recorded ?Confirmed ?Last Taken ?Type Vitamin 1 cap PO DAILY 07/04/19 12/01/23 Unknown History calcium 600 mg (as carbonate)-vit 1 tablet PO DAILY 07/04/19 12/01/23 Unknown History D3 10 mcg (400 unit) chewable tablet (Calcium 600 with Vitamin D3) drospirenone (contraceptive) 4 mg 1 tablet PO DAILY 12/01/23 12/01/23 Unknown History (28) tablet (Slynd) Allergies Allergy/AdvReac Type Severity Reaction Status Date / Time tramadol AdvReac Mild Nausea and Verified 10/11/24 10:18 Vomiting Review of Systems Review of Systems: CONSTITUTIONAL: Denies fever, chills, or sweats. EYES: Denies visual changes, blurry vision, redness, or discharge. Positive for eyelid swelling and pain. ENT: Denies rhinorrhea, congestion, sore throat, or otalgia. CARDIOVASCULAR: Denies chest pain, palpitations, or edema. RESPIRATORY: Denies cough or dyspnea. GASTROINTESTINAL: Denies abdominal pain, nausea, vomiting, or diarrhea. GENITOURINARY: Denies dysuria or hematuria. SKIN: Denies rash or itching. MUSCULOSKELETAL: Denies back pain, joint pain, or myalgia. NEUROLOGIC: Denies headache, numbness, or weakness. PSYCHIATRIC: Denies anxiety or depression. All other systems reviewed are negative, except as documented in HPI. [facility]LY [facility], [facility] Past Medical History Medical History UTI (urinary tract infection) Surgical History Surgical History [place] teeth extracted Social History Social History Smoking status: Never smoker Alcohol intake: current Alcohol use details: social Substance use type: does not use Living arrangements: with family Gender identity (if verbalized by the patient): Female Comments At the time of my signature, I reviewed and agree with the nursing past medical, surgical, social, and family history. There is no relevant family history pertinent to the patient complaint. Exam Narrative: GENERAL: This is a well-nourished, well-developed adult, in no apparent distress. They are non ill-appearing, nontoxic appearing. HEAD: normocephalic, atraumatic. EYES: Sclera clear/white. Conjunctiva normal. Vision is grossly intact. Extraocular movements intact. Pupils PERRLA. Right upper and lower eyelid normal. Left upper eyelid normal. Left lower eyelid erythematous. Left eyelid eversion normal without any retained foreign body, no redness or swelling. Left lower eyelid eversion shows stye present to lateral side, no retained foreign body. it Is tender to palpate. EARS: External ears normal, NOSE: External nose normal THROAT: Mucous membranes moist, NECK: Neck supple, non-tender without lymphadenopathy, masses or thyromegaly. CARDIOVASCULAR: Regular rate and rhythm RESPIRATORY: Respiratory rate normal, respiratory effort nonlabored, no respiratory distress SKIN: warm, Dry, intact with no suspicious lesions or rash, good texture and turgor. NEURO: awake, alert, and oriented to person, place and time. There were no obvious focal neurologic abnormalities. EXTREMITIES: No joint tenderness, effusion, or edema noted. Course Course Emergency Course: Portions of this record may have been created with voice recognition software Level of Care: Express Care Visit Vital Signs Vital signs: Vital Signs Temperature 98.2 F 10/11/24 10:10 Pulse Rate 83 10/11/24 10:10 Respiratory Rate 14 10/11/24 10:10 Blood Pressure 134/97 H 10/11/24 10:10 Pulse Oximetry 100 10/11/24 10:10 Oxygen Delivery Room Air 10/11/24 10:10 Temperature 98.2 F 10/11/24 10:10 Pulse Rate 83 10/11/24 10:10 Respiratory Rate 14 10/11/24 10:10 Blood Pressure 134/97 H 10/11/24 10:10 Pulse Oximetry 100 10/11/24 10:10 Oxygen Delivery Room Air 10/11/24 10:10 Reviewed MDM - Eye Problem MDM Narrative Medical decision making narrative: Patient has internal stye to left lower eyelid. Recommend warm compresses. Normal visual acuity. Will Prescribe erythromycin ointment. Discussed physical exam findings. Advised supportive measures and signs/symptoms to go to the ER. P t is appropriate for outpt treatment and f/u. Differential Diagnosis Differential diagnosis: Likely conjunctivitis and other (Hordeolum, chalazion, blepharitis) Critical Care Time Critical Care Time Critical Care Time: No Discharge Plan Discharge Clinical Impression: Internal hordeolum of left eye Qualifiers: Eyelid: lower Qualified Code(s): H00.025 - Hordeolum internum left lower eyelid Patient Disposition: Home Condition: Stable Instructions: Micaela (ED) Additional Instructions: Apply warm, moist compresses on the affected area frequently (for 5 to 10 minutes three to five times per day) in order to help with drainage. . Use erythromycin ointment as directed. Massage and gentle wiping of the affected eyelid after the warm compress can also help with drainage. You can use baby shampoo to wash the eye area with a wet cotton swab or you may use [id number] lid washing solution. Avoid wearing eye makeup or contact lenses Take medication as directed. If the lesion does not improve within two weeks for you believe it is getting worse, please follow up with an analytical lead for further management. Please go to the ER if he develops any worsening redness, eye pain, vision problems, fevers, or swelling or redness around the eye. Patient Language: Sinhala Prescriptions: New erythromycin 5 mg/gram (0.5 %) ointment 1 applic LEFT EYE HS 7 Days Qty: 3.5 0RF No Action Vitamin 1 cap PO DAILY Calcium 600 with Vitamin D3 600 mg(1,500mg) -400 unit Tablet,Chewable 1 tablet PO DAILY Slynd 4 mg (28) tablet 1 tablet PO DAILY Follow-up/Referrals: Valentin Bernardo MD [Primary Care Provider] - Time of Disposition: 11:16
== END 2024-10-11 11:20 | disposition home or self-care (01) ==
PROVIDERS: PCP Family Medicine
DX: H00.025 Hordeolum internum left lower eyelid (principal)
CPT/HCPCS: 99213; G0463

== ENCOUNTER 2024-11-30 14:21 | Emergency (ER) | payer OTHER, SELFPAY ==
--- NOTE | 2024-11-30 14:23 | ED.FEMALEGU ---
HPI - Female Genitourinary General Chief complaint: Urogenital-Female Stated complaint: Uti Symptoms Time Seen by Provider: 11/30/24 14:23 Source: patient Mode of arrival: ambulatory Limitations: no limitations History of Present Illness HPI Narrative: Gaviota is a 44-year-old female patient presenting to the clinic today with complaints of possible UTI. She reports last night she developed urinary frequency and urgency. Denies any burning at this time. No fevers kid, chills, or body aches. Denies any abdominal pain or back pain. No vaginal discharge. Her menstrual cycles are irregular due to control she is taking. Denies any concern for STIs or . Related Data Home Medications ?Medication ?Instructions ?Recorded ?Confirmed ?Last Taken ?Type calcium 600 mg (as carbonate)-vit 1 tablet PO DAILY 07/04/19 12/01/23 Unknown History D3 10 mcg (400 unit) chewable tablet (Calcium 600 with Vitamin D3) drospirenone (contraceptive) 4 mg 1 tablet PO DAILY 12/01/23 12/01/23 Unknown History (28) tablet (Slynd) Allergies Allergy/AdvReac Type Severity Reaction Status Date / Time tramadol AdvReac Mild Nausea and Verified 11/30/24 14:35 Vomiting Review of Systems Review of Systems: Pertinent positives per HPI. Patient denies any fever, chills, rash, headache, visual changes, dizziness, cough, runny nose, sore throat, shortness of breath, chest pain, palpitations, nausea, vomiting, diarrhea, constipation, abdominal pain. PMF Past Medical History Medical History UTI (urinary tract infection) Surgical History Surgical History [place] teeth extracted Social History Social History Smoking status: Never smoker Alcohol intake: current Alcohol use details: social Substance use type: does not use Living arrangements: with family Gender identity (if verbalized by the patient): Female Comments At the time of my signature, I reviewed and agree with the nursing past medical, surgical, social, and family history. There is no relevant family history pertinent to the patient complaint. Exam Narrative: General: Well-developed, well nourished, in no apparent distress. Head: Normocephalic, atraumatic. Cardio: Regular rate and rhythm, s1 and s2 normal, no murmur appreciated. Resp: Clear to auscultation bilaterally, no rhonchi, rales, wheezing or rubs. Abdomen: Soft, pliable, bowel sounds present in all quadrants, mild suprapubic tender to palpation, no organomegly, no CVAT tenderness. Course Course Emergency Course: Portions of this record may have been created with voice recognition software. Level of Care: Express Care Visit Vital Signs Vital signs: Vital Signs Temperature 36.6 C 11/30/24 14:30 Pulse Rate 89 11/30/24 14:30 Respiratory Rate 16 11/30/24 14:30 Blood Pressure 132/85 11/30/24 14:30 Pulse Oximetry 100 11/30/24 14:30 Temperature 36.6 C 11/30/24 14:30 Pulse Rate 89 11/30/24 14:30 Respiratory Rate 16 11/30/24 14:30 Blood Pressure 132/85 11/30/24 14:30 Pulse Oximetry 100 11/30/24 14:30 Vital signs reviewed MDM - Female Genitourinary MDM Narrative Medical decision making narrative: At the time of visit patient is resting comfortably on the exam table. Patient appears to be nontoxic. Complaints of possible UTI. She reports last night she developed urinary frequency and urgency. Denies any burning at this time. No fevers kid, chills, or body aches. Denies any abdominal pain or back pain. No vaginal discharge. Her menstrual cycles are irregular due to control she is taking. Denies any concern for STIs or . Labs: Urinalysis dip was ordered and shows trace of leukocytes and 1+ blood. We will send urine for culture Plan: I suspect patient has probable UTI. Will place patient on Macrobid. Supportive measures were discussed with the patient and they voiced understanding discharge instructions and agrees to treatment plan. Return precautions reviewed Differential Diagnosis Differential diagnosis: Likely urinary tract infection, bacterial vaginosis, cervicitis, vaginitis and cystitis Lab Data Labs: Lab Results 11/30/24 Range/Units 14:35 POC Urine Color Yellow POC Urine Clarity Clear POC Urine pH 6.0 POC Ur Specif [place] 1.010 POC Urine Protein Negative (Negative) POC Ur Glucose (UA) Negative (Negative) POC Urine Ketones Negative (Negative) POC Urine Blood 1+ (Negative) POC Urine Nitrite Negative (Negative) POC Urine Bilirubin Negative (Negative) POC Urine Urobilinogen 0.2 POC U Leukocyte Esteras Trace (Negative) Discharge Plan Discharge Clinical Impression: Urinary urgency, Urinary frequency Patient Disposition: Home Condition: Stable Instructions: Antibiotic Form, Urinary Tract Infection in Women (ED) Additional Instructions: Urinalysis shows 1+ blood and trace of leukocytes. We will send urine for culture. Take Macrobid as prescribed Increase fluids and stay well hydrated Wipe front to back. May use wet wipes. Avoid tub baths If sexually active- pee before and after intercourse. Wear cotton panties Avoid tight clothing up against the genitals Follow up with your PCP in 1 week if symptoms persist. Patient Language: Sami Prescriptions: New nitrofurantoin monohyd/m-cryst [Macrobid] 100 mg capsule 100 mg PO Q12H 5 Days Qty: 10 0RF Rx Instructions: must administer with a meal/food No Action Calcium 600 with Vitamin D3 600 mg(1,500mg) -400 unit Tablet,Chewable 1 tablet PO DAILY Slynd 4 mg (28) tablet 1 tablet PO DAILY Follow-up/Referrals: PHYSICIAN,[facility] [Primary Care Provider] - Time of Disposition: 14:39 Quality NIHSS Nursing Documentation ED NIHSS nursing documentation: reviewed/agree
[2024-11-30 14:30] VITALS: BP 132/85; PULSE 89; RESP 16; TEMP 36.6; O2SAT 100
[2024-11-30 14:37] LABS: EDUAAPPEAR Clear; EDUABILI Negative (Negative); EDUABLOOD 1+ (Negative); EDUACOLOR1 Yellow; EDUAGLUCOSE Negative (Negative); EDUAKETONE Negative (Negative); EDUALEUKO Trace (Negative); EDUANITRATE Negative (Negative); EDUAPH 6.0; EDUAPROTEIN Negative (Negative); EDUASPGRAVITY 1.010; EDUAUROBILI 0.2
== END 2024-11-30 14:41 | disposition home or self-care (01) ==
PROVIDERS: Emergency Provider Nurse Practitioner Family
DX: R39.15 Urgency of urination (principal); R35.0 Frequency of micturition
CPT/HCPCS: 81003; 87086; 99213; G0463